=== PATIENT | male | born 1980 | race Hispanic/Latino ===

== ENCOUNTER 2019-09-18 11:28 | Emergency (ER) | payer SELFPAY ==
[2019-09-18 12:19] LABS: Urine Blood NEGATIVE (NEG); Urine Glucose NEGATIVE (NEG); Urine Protein NEGATIVE (NEG); Urine Specific Gravity 1.025 (1.005-1.030)
[2019-09-18 12:23] LABS: Urine Bacteria NONE SEEN /HPF (NONE SEEN); Urine RBC <5 /HPF (NONE SEEN)
[2019-09-18 12:24] LABS: Urine Culture Reflex Order NOT NEEDED
--- NOTE | 2019-09-18 12:41 | ER ---
Nurse's Notes [facility] Name: Mark Morton Jr Age: 39 yrs Sex: Male : 1980 Arrival Date: 09/18/2019 Time: 11:36 Bed 20 Private MD: Diagnosis: Encounter for screening, unspecified Presentation: 09/17 11:39 Chief complaint: Patient states: i went to the ER its been a while it was in [place], tw2 they told me i had an enlarged prostrate, and they told me i had fecal leakage and it is embarrassing, but they didn't explain much and he really didn't tell me much so i have been here for like a week and i told my dad to bring me here, i dont have a primary care dr either here. Coronavirus screen: Patient reports a cough. Patient denies shortness of breath or difficulty breathing. Patient denies measured and/or subjective temperature greater than 100.4F prior to today's visit. Patient denies travel on a cruise ship or to a country the [facility] currently lists as an affected area. Patient denies contact with known and/or suspected case of COVID-19. Ebola Screen: Patient denies travel to an Ebola-affected area in the 21 days before illness onset. Initial Sepsis Screen: Does the patient meet any 2 criteria? No. Patient's initial sepsis screen is negative. Does the patient have a suspected source of infection? No. Patient's initial sepsis screen is negative. Risk Assessment: Do you want to hurt yourself or someone else? Patient reports no desire to harm self or others. Onset of symptoms was September 18, 2019. 11:39 Method Of Arrival: Ambulatory tw2 11:39 Acuity: ALINA 3 tw2 Triage Assessment: 11:42 General: Appears in no apparent distress. slender, Behavior is calm, cooperative, tw2 appropriate for age. Pain: Complains of pain in right lower quadrant. GI: Reports diarrhea, "but it was 2 days ago". Historical: - Allergies: 11:42 No Known Allergies; tw2 - Home Meds: 11:42 None [Active]; tw2 - PMHx: 11:42 None; tw2 - PSHx: 11:42 None; tw2 - Immunization history:: Adult Immunizations. - Social history:: Smoking status: Patient reports the use of cigarette tobacco products, smokes one-half pack cigarettes per day. Screenin:04 Abuse screen: Denies threats or abuse. Nutritional screening: No deficits noted. tw2 Tuberculosis screening: No symptoms or risk factors identified. Fall Risk None identified. Assessment: 12:00 General: Appears in no apparent distress. Behavior is calm, cooperative, appropriate ah for age. Pain: Denies pain. Neuro: Level of Consciousness is awake, alert, obeys commands, Oriented to person, place, time, situation, Appropriate for age. Cardiovascular: Capillary refill < 3 seconds Patient's skin is warm and dry. Respiratory: Airway is patent Respiratory effort is even, unlabored, Respiratory pattern is regular, symmetrical. GI: Reports since stool leakage Patient currently denies bloody stool, constipation, nausea, pain. : Denies burning with urination, inability to void. Derm: Skin is intact, is healthy with good turgor, Skin is dry. 21:22 Reassessment: Pt given information regarding the [facility] based clinic. Discharge instructions given. Pt voiced understanding. Vital Signs: 11:39 BP 126 / 83; Pulse 77; Resp 17; Temp 97.8(TE); Pulse Ox 98% on R/A; Weight 61.23 kg tw2 (R); Height 5 ft. 5 in. (165.10 cm) (R); Pain 6/10; 11:39 Body Mass Index 22.46 (61.23 kg, 165.10 cm) tw2 ED Course: 11:36 Patient arrived in ED. fj1 11:36 [facility] cp 11:36 Tomas Heard MD is Attending Physician. cp 11:41 Triage completed. tw2 11:41 Arm band placed on. tw2 11:43 Bed in low position. Call light in reach. tw2 12:54 Aurelia Owen, RN is Primary Nurse. 13:00 No provider procedures requiring assistance completed. Patient did not have IV access during this emergency room visit. Administered Medications: No medications were administered Outcome: 12:40 Discharge ordered by . cp 13:00 Discharged to home ambulatory. 13:00 Condition: good 13:00 Discharge instructions given to patient, Instructed on discharge instructions, follow up and referral plans. Demonstrated understanding of instructions, follow-up care. 13:09 Patient left the ED. ll1 Signatures: Tomas Patel PA PA cp Wise, Tara, RN RN tw2 Ej Reyna fj1 Aurelia Owen, RN RN Brendan Muniz RN RN ll1
--- NOTE | 2019-09-18 12:41 | EDPHYS ---
Physician Documentation [facility] Name: Mark Morton Jr Age: 39 yrs Sex: Male : 1980 Arrival Date: 09/18/2019 Time: 11:36 Bed 20 Private MD: ED Physician Tomas Heard HPI: 09/17 11:55 This 39 yrs old Male presents to ER via Ambulatory with complaints of Urinary cp Problem. 11:55 The patient presents with enlarged prostate. cp 11:55 Onset: The symptoms/episode began/occurred at an unknown time. Associated signs and cp symptoms: Pertinent positives: difficulty urinating, Pertinent negatives: abdominal pain, constipation, diarrhea, dysuria, fever. Severity of symptoms: in the emergency department the symptoms are unchanged, despite home interventions. Historical: - Allergies: 11:42 No Known Allergies; tw2 - Home Meds: 11:42 None [Active]; tw2 - PMHx: 11:42 None; tw2 - PSHx: 11:42 None; tw2 - Immunization history:: Adult Immunizations. - Social history:: Smoking status: Patient reports the use of cigarette tobacco products, smokes one-half pack cigarettes per day. ROS: 12:00 Constitutional: Negative for body aches, chills, fever, poor PO intake. cp 12:00 Cardiovascular: Negative for chest pain, palpitations. cp 12:00 Respiratory: Negative for cough, shortness of breath, wheezing. 12:00 Abdomen/GI: Negative for abdominal pain, diarrhea, constipation, bowel incontinence. 12:00 Back: Negative for pain at rest, pain with movement. 12:00 : Positive for difficulty urinating, Negative for urinary frequency, burning with urination, testicular pain 12:00 Neuro: Negative for altered mental status, headache, weakness. 12:00 All other systems are negative. Exam: 12:05 Constitutional: The patient appears in no acute distress, alert, awake, cp non-diaphoretic, non-toxic, well developed, well nourished. 12:05 Head/Face: Normocephalic, atraumatic. cp 12:05 Chest/axilla: Inspection: normal. 12:05 Cardiovascular: Rate: normal. 12:05 Respiratory: the patient does not display signs of respiratory distress, Respirations: normal, no use of accessory muscles, no retractions, labored breathing, is not present. 12:05 Abdomen/GI: Exam negative for discomfort, distension, guarding, Inspection: abdomen appears normal. Vital Signs: 11:39 BP 126 / 83; Pulse 77; Resp 17; Temp 97.8(TE); Pulse Ox 98% on R/A; Weight 61.23 kg tw2 (R); Height 5 ft. 5 in. (165.10 cm) (R); Pain 6/10; 11:39 Body Mass Index 22.46 (61.23 kg, 165.10 cm) tw2 MDM: 11:44 Patient medically screened. [facility] 12:00 Differential diagnosis: UTI, urinary retention, prostatitis, urethritis. cp 12:40 Data reviewed: vital signs, nurses notes, lab test result(s), urinalysis, and as a cp result, I will discharge patient. 09/18 10:05 Counseling: I had a detailed discussion with the patient and/or guardian regarding: the cp historical points, exam findings, and any diagnostic results supporting the discharge/admit diagnosis, lab results, the need for outpatient follow up, a family practitioner, a urologist, to return to the emergency department if symptoms worsen or persist or if there are any questions or concerns that arise at home. 09/17 11:51 Order name: Urine Microscopic Only; Complete Time: 12:28 09/17 12:10 Order name: Urine Dipstick--Ancillary (enter results); Complete Time: 12:24 09/17 11:51 Order name: Urine Dipstick-Ancillary (obtain specimen); Complete Time: 12:09 Administered Medications: No medications were administered Disposition: 09/17 13:15 Chart complete. 09/18 08:35 Co-signature as Attending Physician, Tomas Heard MD I agree with the assessment and [facility] plan of care. Disposition: 09/18/19 12:40 Discharged to Home. Impression: Encounter for screening, unspecified. - Condition is Stable. - Medication Reconciliation Form, Thank You Letter, Antibiotic Education, Prescription Opioid Use form. - Follow up: Private Physician; When: 2 - 3 days; Reason: Recheck today's complaints. - Problem is an ongoing problem. - Symptoms are unchanged. Signatures: Dispatcher [employer] Tomas Borja MD MD cha Page, Corey, PA PA Kilo Salomona, RN RN tw2 Brendan Muniz RN RN ll1 Corrections: (The following items were deleted from the chart) 09/17 13:09 12:40 09/18/2019 12:40 Discharged to Home. Impression: Encounter for screening, ll1 unspecified. Condition is Stable. Forms are Medication Reconciliation Form, Thank You Letter, Antibiotic Education, Prescription Opioid Use. Follow up: Private Physician; When: 2 - 3 days; Reason: Recheck today's complaints. Problem is an ongoing problem. Symptoms are unchanged. cp
--- OUTSIDE RECORDS SUMMARY | 2019-09-18 12:49 | XMS REPORT | Continuity of Care Document ---
:1980 Author Organization [facility] t Address [address] [place] [address] Care Team Providers Name Role Phone Unavailable Unavailable Unavailable Payers Payer Name Policy Type Policy Number Effective Date Expiration Date S ource Problems This patient has no known problems. Allergies, Adverse Reactions, Alerts Allergy Allergy Status Severity Reaction(s) Onset Inactive Treating Comm ents Source Name Type Date Date Clinician No Known DA Active U 2019-0 [facility]- [facility] s 00:00: [address] No Known DA Active U 0 [facility] 8 [facility] s 00:00: [address] [facility] No Known DA Active U 2018-0 [facility] 5-25 [facility]: e [facility] Medications This patient has no known medications. Procedures This patient has no known procedures. Results Test Description Test Time Test Comments Results Result Comments Source CBC W/AUTO DIFF 2019-08-18 12:22:00 Test Item Value Reference Range Interpretation Comme nts WHITE BLOOD CELL (test code = WBC) 6.26 x10 3/uL 4.80-10.80 N RED BLOOD CELL (test code = RBC) 5.07 x10 6/uL 4.7-6.1 N HEMOGLOBIN (test code = HGB) 17.4 G/DL 14.0-17.0 H HEMATOCRIT (test code = HCT) 49.6 % 42-52 N MEAN CELL VOLUME (test code = MCV) 97.8 FL 80-94 H MEAN CELL HGB (test code = MCH) 34.3 PG 27-31 H MEAN CELL HGB CONCENTRATION (test code = MCHC) 35.1 G/DL 33-37 N RED CELL DISTRIBUTION WIDTH (test code = RDW) 13.7 % 11.5-14. 5 N PLATELET COUNT (test code = PLT) 144 x10 3/uL 150-450 L MEAN PLATELET VOLUME (test code = MPV) 9.9 FL 7.4-10.4 N NEUTROPHIL % (test code = NT%) 64.5 % 42-86 N LYMPHOCYTE % (test code = LY%) 24.4 % 24-44 N MONOCYTE % (test code = MO%) 9.9 % 0.0-4.0 H EOSINOPHIL % (test code = EO%) 1.0 % 0.0-2.7 N BASOPHIL % (test code = BA%) 0.2 % 0.0-0.5 N NEUTROPHIL # (test code = NT#) 4.04 x10 3/uL 1.8-7.7 N LYMPHOCYTE # (test code = LY#) 1.53 x10 3/uL 1.0-4.8 N MONOCYTE # (test code = MO#) 0.62 x10 3/uL 0.0-0.8 N EOSINOPHIL # (test code = EO#) 0.06 x10 3/uL 0.0-0.5 N BASOPHIL # (test code = BA#) 0.01 x10 3/uL 0.0-0.2 N BASIC METABOLIC [id number] 11:20:00 Test Item Value Reference Range Interpretation Comments SODIUM (test code = 142 mmol/L 136-145 N NA) POTASSIUM (test code 3.6 mmol/L 3.5-5.1 N = K) CHLORIDE (test code = 106.0 mmol/L 98-107 N CL) CARBON DIOXIDE (test 30.0 mmol/L 21-32 N code = CO2) ANION GAP (test code 9.6 10-20 L = GAP) GLUCOSE (test code = 71 mg/dL 74-106 L GLU) BLOOD UREA NITROGEN 12 mg/dL 7-18 N (test code = BUN) GLOMERULAR FILTRATION > 60 mL/min >=60 Estima tuan GFR by RATE (test code = using Rebeca fied MDRD GFR) formula.Chronic kidney disease is defined as eith er kidney damageor GFR <60 mL/min/1.73 m2 for >3 months. CREATININE (test code 0.90 mg/dL 0.7-1.3 N = CREAT) BUN/CREATININE RATIO 13.9 10-20 N (test code = BUN/CREA) CALCIUM (test code = 8.9 mg/dL 8.5-10.1 N CA) HEPATIC FUNCTION [id number] 11:20:00 Test Item Value Reference Range Interpretation Comments TOTAL PROTEIN (test 7.9 gram/dL 6.4-8.2 N code = PROT) ALBUMIN (test code = 3.4 g/dL 3.4-5.0 N ALB) GLOBULIN (test code = 4.5 gram/dL 2.7-4.2 H GLOB) ALBUMIN/GLOBULIN RATIO 0.8 0.75-1.50 N (test code = A/G) BILIRUBIN TOTAL (test 0.80 mg/dL 0.0-1.0 N code = BILT) BILIRUBIN DIRECT (test 0.31 mg/dL 0.0-0.20 H code = BILD) SGOT/AST (test code = 40 IUnit/L 15-37 H AST) SGPT/ALT (test code = 46 IUnit/L 12-78 N ALT) ALKALINE PHOSPHATASE 117 IUnit/L 45-117 N Note change in TOTAL (test code = reference range due ALKP) to change in reagent. [id number] 11:20:00 Test Item Value Reference Range Interpretation Comments LIPASE (test code = LIP) 124 U/L 73.0-393.0 N BASIC METABOLIC [id number] 11:12:00 Test Item Value Reference Range Interpretation Comments SODIUM (test code = NA) 142 mmol/L 136-145 N POTASSIUM (test code = K) 3.6 mmol/L 3.5-5.1 N CHLORIDE (test code = CL) 106.0 mmol/L 98-107 N CARBON DIOXIDE (test code = CO2) mmol/L 21-32 ANION GAP (test code = GAP) 10-20 GLUCOSE (test code = GLU) mg/dL 74-106 BLOOD UREA NITROGEN (test code = mg/dL 7-18 BUN) GLOMERULAR FILTRATION RATE (test mL/min >=60 code = GFR) CREATININE (test code = CREAT) mg/dL 0.7-1.3 BUN/CREATININE RATIO (test code 10-20 = BUN/CREA) CALCIUM (test code = CA) mg/dL 8.5-10.1 HEPATIC FUNCTION [id number] 11:12:00 Test Item Value Reference Range Interpretation Comments TOTAL PROTEIN (test code = PROT) gram/dL 6.4-8.2 ALBUMIN (test code = ALB) g/dL 3.4-5.0 GLOBULIN (test code = GLOB) gram/dL 2.7-4.2 ALBUMIN/GLOBULIN RATIO (test code = 0.75-1.50 A/G) BILIRUBIN TOTAL (test code = BILT) mg/dL 0.0-1.0 BILIRUBIN DIRECT (test code = BILD) mg/dL 0.0-0.20 SGOT/AST (test code = AST) IUnit/L 15-37 SGPT/ALT (test code = ALT) IUnit/L 12-78 ALKALINE PHOSPHATASE TOTAL (test IUnit/L 45-117 code = ALKP) [id number] 11:12:00 Test Item Value Reference Range Interpretation Comments LIPASE (test code = LIP) U/L 73.0-393.0 CBC W/O [id number] 11:09:00 Test Item Value Reference Range Interpretation Comments WHITE BLOOD CELL (test code = 5.2 K/mm3 4.5-12.5 N WBC) RED BLOOD CELL (test code = 4.74 mill/mm3 4.0-5.8 N RBC) HEMOGLOBIN (test code = HGB) 15.8 gram/dL 13.0-17.5 N HEMATOCRIT (test code = HCT) 46.5 % 42.0-52.0 N MEAN CELL VOLUME (test code = 98.1 fL 80-98 H MCV) MEAN CELL HGB (test code = MCH) 33.3 picogram 27.0-33.0 H MEAN CELL HGB CONCETRATION 34.0 gram/dL 33.0-36.0 N (test code = MCHC) RED CELL DISTRIBUTION WIDTH 13.2 % 11.6-16.2 N (test code = RDW) PLATELET COUNT (test code = 139 K/mm3 150-450 L PLT) MEAN PLATELET VOLUME (test code 10.3 fL 6.7-11.0 N = MPV) CBC W/O [id number] 11:02:00 Test Item Value Reference Range Interpretation Comments WHITE BLOOD CELL (test code = K/mm3 4.5-12.5 WBC) RED BLOOD CELL (test code = RBC) mill/mm3 4.0-5.8 HEMOGLOBIN (test code = HGB) 15.8 gram/dL 13.0-17.5 N HEMATOCRIT (test code = HCT) 46.5 % 42.0-52.0 N MEAN CELL VOLUME (test code = fL 80-98 MCV) MEAN CELL HGB (test code = MCH) picogram 27.0-33.0 MEAN CELL HGB CONCETRATION (test gram/dL 33.0-36.0 code = MCHC) RED CELL DISTRIBUTION WIDTH % 11.6-16.2 (test code = RDW) PLATELET COUNT (test code = PLT) K/mm3 150-450 MEAN PLATELET VOLUME (test code fL 6.7-11.0 = MPV) - CT ABD PELVIS W/O [id number] 10:10:00 Name: LONNIE AGUILAR [facility] : 1980 Age/S: 38 / M [address] [facility] Unit #: [id number] Loc: [place] [address] Phys: Estelita Bernard [employer] Acct: [id number] Dis Date: Status: REG ER PHONE #: [phone] Exam Date: 01/01/2019 0943 FAX #: [phone] Reason: Right fl ank pain EXAMS: CPTCODE: [id number] CT ABD PELVIS W/O CONT 07876 HISTORY: Right flank pain. COMPARISON: None available. CT abdomen and pelvis: Stone protocol. Automated exposure control. Location: [facility]. CT ABDOMEN: The lung bases are clear. The noncontrast liver is unremarkable. No discrete parenchymal mass. The spleen is prominent measuring 16.4 cm in AP direction. The stomach is distended well with food and it is within normal limits. Noncontrast pancreas and adrenals are normal. Kidneys are free from hydroureteronephrosis. No calyceal stones. No pathologic adenopathy. Unremarkable unopacified abdominal and pelvic vasculature. No bowel obstruction or colitis or diverticulitis or enteritis. Constipation. CT PELVIS: Appendix is not visible with certainty however no inflammatory changes are noted. No bowel obstruction. Decompressed urinary bladder is nondiagnostic. Prostate with coarse calcifications measuring 3.4 cm. No free fluid or free air. No pelvic pathologic adenopathy. The subcutaneous tissues and the musculature are normal in appearance. No lytic or blastic lesions are noted within the bony skeleton. Bone islands. IMPRESSION: No hydroureteronephrosis or calyceal stones. Unremarkable decompressed urinary bladder is limited in evaluation. No free fluid or free air. PAGE 1 Signed Report (CONTINUED) Name: LONNIE AGUILAR [facility] : 1980 Age/S: 38 / M [address] [facility] Unit #: [id number] Loc: [place] [address] Phys: Estelita Bernard NP Acct: [id number] Dis Date: Status: REG ER PHONE #: [phone] Exam Date: 01/01/2019942 FAX #: [phone] Reason: Right flank pain EXAMS: CPT CODE: [id number] CT ABD PELVIS W/O CONT 34023 <Continued> Appendix is not visible however no bowel obstruction or colitis or diverticulitis or enteritis.Study is limited due to lack of intra-abdominal and subcutaneous fat and due to lack of contrast. at 1010 Reported and signed by: Maverick Eckert M.D. CC: Estelita Bernard NP Technologist:Aggie Min,RT(R),CT CTDI: DLP: Trnscb Date/Time: 01/01/2019 (1010) [email or web address] Orig Print D/T: S: 01/01/2019 (1013) PAGE 2 Signed ReportURINALYSIS [id number] 10:06:00 Test Item Value Reference Range Interpretation Comments UA COLOR (test code = YELLOW YELLOW COLU) UA APPEARANCE (test code CLEAR CLEAR = APPU) UA GLUCOSE DIPSTICK (test NEGATIVE mg/dL NEGATIVE code = DGLUU) UA BILIRUBIN DIPSTICK NEGATIVE mg/dL NEGATIVE (test code = BILU) UA KETONE DIPSTICK (test NEGATIVE mg/dL NEGATIVE code = KETU) UA SPECIFIC GRAVITY (test 1.028 1.001-1.035 code = SGU) UA BLOOD DIPSTICK (test Negative mg/dL NEGATIVE code = TREMAINE) UA PH DIPSTICK (test code 5.5 5.0-8.0 = SCOTT) UA PROTEIN DIPSTICK (test 20 (Trace) mg/dL NEGATIVE A code = PROU) UA UROBILINIOGEN DIPSTICK 6.0 (2+) mg/dL NEGATIVE A (test code = URO) UA NITRITE DIPSTICK (test NEGATIVE NEGATIVE code = COOPER) UA LEUKOCYTE ESTERASE W 75 Nica/uL (1+) NEGATIVE A REFLEX (test code = Nica/uL LEUUR) UA WBC (test code = WBCU) 21-50 per HPF 0-5 A UA RBC (test code = RBCU) 0-2 #/HPF 0-5 UA EPITHELIAL CELLS (test FEW per HPF FEW code = EPIU) UA BACTERIA (test code = FEW #/HPF NONE A BACU) UA MUCUS (test code = FEW #/LPF FEW MUCU) Urine Source? Clean CatchURINALYSIS [id number] 16:36:00 Test Item Value Reference Range Interpretation Comments UA COLOR (test code = COLU) Dark-Yellow YELLOW UA APPEARANCE (test code = CLEAR CLEAR APPU) UA GLUCOSE DIPSTICK (test NEGATIVE mg/dL NEGATIVE code = DGLUU) UA BILIRUBIN DIPSTICK (test 0.5 (1+) mg/dL NEGATIVE A code = BILU) UA KETONE DIPSTICK (test 10 (1+) mg/dL NEGATIVE A code = KETU) UA SPECIFIC GRAVITY (test 1.029 1.001-1.035 code = SGU) UA BLOOD DIPSTICK (test Negative mg/dL NEGATIVE code = TREMAINE) UA PH DIPSTICK (test code = 5.5 5.0-8.0 SCOTT) UA PROTEIN DIPSTICK (test 20 (Trace) mg/dL NEGATIVE A code = PROU) UA UROBILINIOGEN DIPSTICK >12.0 (4+) mg/dL NEGATIVE A (test code = URO) UA NITRITE DIPSTICK (test NEGATIVE NEGATIVE code = COOPER) UA LEUKOCYTE ESTERASE W NEGATIVE Nica/uL NEGATIVE REFLEX (test code = LEUUR) UA WBC (test code = WBCU) 0-5 per HPF 0-5 UA RBC (test code = RBCU) 0-2 #/HPF 0-5 UA EPITHELIAL CELLS (test None seen per HPF FEW code = EPIU) UA BACTERIA (test code = NONE SEEN #/HPF NONE BACU) UA MUCUS (test code = MUCU) FEW #/LPF FEW Urine Source? Clean CatchBASIC METABOLIC [id number] 16:29:00 Test Item Value Reference Range Interpretation Comments SODIUM (test code = 137 mmol/L 136-145 N NA) POTASSIUM (test code 3.4 mmol/L 3.5-5.1 L = K) CHLORIDE (test code = 103.0 mmol/L 98-107 N CL) CARBON DIOXIDE (test 26.0 mmol/L 21-32 N code = CO2) ANION GAP (test code 11.4 10-20 N = GAP) GLUCOSE (test code = 130 mg/dL 74-106 H GLU) BLOOD UREA NITROGEN 14 mg/dL 7-18 N (test code = BUN) GLOMERULAR FILTRATION 57 mL/min >=60 Estima tuan GFR by RATE (test code = using Rebeca fied MDRD GFR) formula.Chronic kidney disease is defined as [facility] er kidney damageor GFR <60 mL/min/1.73 m2 for >3 months. CREATININE (test code 1.40 mg/dL 0.7-1.3 H = CREAT) BUN/CREATININE RATIO 10.0 10-20 N (test code = BUN/CREA) CALCIUM (test code = 8.2 mg/dL 8.5-10.1 L CA) HEPATIC FUNCTION [id number] 16:29:00 Test Item Value Reference Range Interpretation Comments TOTAL PROTEIN (test 8.3 gram/dL 6.4-8.2 H code = PROT) ALBUMIN (test code = 3.9 g/dL 3.4-5.0 N ALB) GLOBULIN (test code = 4.4 gram/dL 2.7-4.2 H GLOB) ALBUMIN/GLOBULIN RATIO 0.9 0.75-1.50 N (test code = A/G) BILIRUBIN TOTAL (test 1.30 mg/dL 0.0-1.0 H code = BILT) BILIRUBIN DIRECT (test 0.43 mg/dL 0.0-0.20 H code = BILD) SGOT/AST (test code = 50 IUnit/L 15-37 H AST) SGPT/ALT (test code = 56 IUnit/L 12-78 N ALT) ALKALINE PHOSPHATASE 130 IUnit/L 45-117 H Note change in TOTAL (test code = reference range due ALKP) to change in reagent. [id number] 16:29:00 Test Item Value Reference Range Interpretation Comments LIPASE (test code = LIP) 121 U/L 73.0-393.0 N BASIC METABOLIC [id number] 16:16:00 Test Item Value Reference Range Interpretation Comments SODIUM (test code = NA) 137 mmol/L 136-145 N POTASSIUM (test code = K) 3.4 mmol/L 3.5-5.1 L CHLORIDE (test code = CL) 103.0 mmol/L 98-107 N CARBON DIOXIDE (test code = CO2) mmol/L 21-32 ANION GAP (test code = GAP) 10-20 GLUCOSE (test code = GLU) mg/dL 74-106 BLOOD UREA NITROGEN (test code = mg/dL 7-18 BUN) GLOMERULAR FILTRATION RATE (test mL/min >=60 code = GFR) CREATININE (test code = CREAT) mg/dL 0.7-1.3 BUN/CREATININE RATIO (test code 10-20 = BUN/CREA) CALCIUM (test code = CA) mg/dL 8.5-10.1 HEPATIC FUNCTION [id number] 16:16:00 Test Item Value Reference Range Interpretation Comments TOTAL PROTEIN (test code = PROT) gram/dL 6.4-8.2 ALBUMIN (test code = ALB) g/dL 3.4-5.0 GLOBULIN (test code = GLOB) gram/dL 2.7-4.2 ALBUMIN/GLOBULIN RATIO (test code = 0.75-1.50 A/G) BILIRUBIN TOTAL (test code = BILT) mg/dL 0.0-1.0 BILIRUBIN DIRECT (test code = BILD) mg/dL 0.0-0.20 SGOT/AST (test code = AST) IUnit/L 15-37 SGPT/ALT (test code = ALT) IUnit/L 12-78 ALKALINE PHOSPHATASE TOTAL (test IUnit/L 45-117 code = ALKP) [id number] 16:16:00 Test Item Value Reference Range Interpretation Comments LIPASE (test code = LIP) U/L 73.0-393.0 CBC W/O [id number] 15:53:00 Test Item Value Reference Range Interpretation Comments WHITE BLOOD CELL (test code = 6.5 K/mm3 4.5-12.5 N WBC) RED BLOOD CELL (test code = 5.17 mill/mm3 4.0-5.8 N RBC) HEMOGLOBIN (test code = HGB) 17.1 gram/dL 13.0-17.5 N HEMATOCRIT (test code = HCT) 50.0 % 42.0-52.0 N MEAN CELL VOLUME (test code = 96.7 fL 80-98 N MCV) MEAN CELL HGB (test code = MCH) 33.1 picogram 27.0-33.0 H MEAN CELL HGB CONCETRATION 34.2 gram/dL 33.0-36.0 N (test code = MCHC) RED CELL DISTRIBUTION WIDTH 12.8 % 11.6-16.2 N (test code = RDW) PLATELET COUNT (test code = 154 K/mm3 150-450 N PLT) MEAN PLATELET VOLUME (test code 10.2 fL 6.7-11.0 N = MPV)
[2019-09-18 13:15] VITALS: BP 126/83; TEMP 97.8; O2SAT 98
== END 2019-09-18 13:09 | disposition home or self-care (01) ==
LOC: ER 11:28
DX: Z00.00 Encounter for general adult medical examination without abnormal findings (principal); F17.210 Nicotine dependence, cigarettes, uncomplicated
CPT/HCPCS: 81003; 81015; 99281

== ENCOUNTER 2023-12-05 02:28 | Emergency (ER) | payer OTHER, SELFPAY ==
--- OUTSIDE RECORDS SUMMARY | 2023-12-05 02:31 | XMS REPORT | Continuity of Care Document ---
Author Name Unknown Address [address] [place] [address] [facility] thconnect Address [address] [place] [address] Care Team Providers Care Information Systems Administrator Name Role Phone Choco Lorenz Attending Clinician Unavailable Physician, No Primary or Family Admitting Clinic [facility] U navailable Payers Payer Name Policy Type Policy Number Effective Date Expirati on Date Source Allergies, Adverse Reactions, Alerts Allergy Name Allergy Type Status Severity Reaction(s) Onset Date Inactive Date Treating Clinician Comments Source No Known Allergie s DA Active U 2-14 00:[facility]: [facility] No Known Allergie s DA Active U 08-17 00:00: [address] [facility] No Known Allergie s DA Active U 08-17 00:00: [facility] No Known Allergie s DA Active U 10-17 00:00: [address] [facility] No Known Allergie s DA Active U 10-17 00:00: [address] [facility] No Known Allergie s DA Active U 07-15 00:00: 00 [facility] Encounters Start Date/Time End Date/Time Encounter Type Admission Type Attending [facility] Care Facility Care Department Encounter ID Source 2019-08-18 11:35:00 Inpatient [facility] ER [id number] 95 [facility] 2021-04-06 08:41:00 2021-04-06 09:33:00 Emergency EM Choco Lorenz [facility] FERS [id number] [facility] Results Test Description Test Time Test Comments Results Result Co mments Source COVID 19 INHOUSE [id number] 09:22:00* Test Item Value Reference Range Interpretation Comme nts COVID 19 INHOUSE AG (test co de = [id number]) NEGATIVE NEGATIVE CBC W/AUTO [id number] 12:22:00* Test Item Value Reference Range Interpretation Comme [...] WIDTH (test code = RDW) 13.7 % 11.5-14.5 N PLATELET COUNT (test code = PLT) 144 x10 3/uL 150-450 L MEAN PLATELET VOLUME (test c ode = MPV) 9.9 FL 7.4-10.4 N NEUTROPHIL [...] 0.01 x10 3/uL 0.0-0.2 N BASIC METABOLIC [id number] 11:20:00* Test Item Value Reference Range Interpretation Comme nts SODIUM (test code = NA) 142 mmol/L 136-145 N POTASSIUM (test code = K) 3.6 mmol/L 3.5-5.1 N CHLORIDE (test code = CL) 106.0 mmol/L 98-107 N CARBON DIOXIDE (test code = CO2) 30.0 mmol/L 21-32 N ANION GAP (test code = GAP) 9.6 10-20 L GLUCOSE (test code = GLU) 71 mg/dL 74-106 L BLOOD UREA NITROGEN (test code = BUN) 12 mg/dL 7-18 N GLOMERULAR FILTRATION RATE (test code = GFR) > 60 mL/min >=60 Estimated GFR by using Modified MDRD formula.Chronic kidney disease is defined as either kidney damageor GFR <60 mL/min/1.73 m2 for >3 months. CREATININE (test code = CREAT) 0.90 mg/dL 0.7-1.3 N BUN/CREATININE RATIO (test code = BUN/CREA) 13.9 10-20 N CALCIUM (test code = CA) 8.9 mg/dL 8.5-10.1 N HEPATIC FUNCTION [id number] 11:20:00* Test Item Value Reference Range Interpretation Comme nts TOTAL PROTEIN (test code = PROT) 7.9 gram/dL 6.4-8.2 N ALBUMIN (test code = ALB) 3.4 g/dL 3.4-5.0 N GLOBULIN (test code = GLOB) 4.5 gram/dL 2.7-4.2 H ALBUMIN/GLOBULIN RATIO (test code = A/G) 0.8 0.75-1.50 N BILIRUBIN TOTAL (test code = BILT) 0.80 mg/dL 0.0-1.0 N BILIRUBIN DIRECT (test code = BILD) 0.31 mg/dL 0.0-0.20 H SGOT/AST (test code = AST) 40 IUnit/L 15-37 H SGPT/ALT (test code = ALT) 46 IUnit/L 12-78 N ALKALINE PHOSPHATASE TOTAL (test code = ALKP) 117 IUnit/L 45-117 N Note change in reference range due to change in reagent. [id number] 11:20:00* Test Item Value Reference Range Interpretation Comme nts LIPASE (test code = LIP) 124 U/L 73.0-393.0 N BASIC METABOLIC [id number] 11:12:00* Test Item Value Reference Range Interpretation Comme nts SODIUM (test code = NA) 142 mmol/L 136-145 N POTASSIUM (test code = K) 3.6 mmol/L 3.5-5.1 N CHLORIDE (test code = CL) 106.0 mmol/L 98-107 N CARBON DIOXIDE (test code = CO2) mmol/L 21-32 ANION GAP (test code = GAP) 10-20 GLUCOSE (test code = GLU) mg/dL 74-106 BLOOD UREA NITROGEN (test co de = BUN) mg/dL 7-18 GLOMERULAR FILTRATION RATE ( test code = GFR) mL/min >=60 CREATININE (test code = CREAT) mg/dL 0.7-1.3 BUN/CREATININE RATIO (test c ode = BUN/CREA) 10-20 CALCIUM (test code = CA) mg/dL 8.5-10.1 HEPATIC FUNCTION [id number] 11:12:00* Test Item Value Reference Range Interpretation Comme nts TOTAL PROTEIN (test code = PROT) gram/dL 6.4-8.2 ALBUMIN (test code = ALB) g/dL 3.4-5.0 GLOBULIN (test code = GLOB) gram/dL 2.7-4.2 ALBUMIN/GLOBULIN RATIO (test code = A/G) 0.75-1.50 BILIRUBIN TOTAL (test code = BILT) mg/dL 0.0-1.0 BILIRUBIN DIRECT (test code = BILD) mg/dL 0.0-0.20 SGOT/AST (test code = AST) IUnit/L 15-37 SGPT/ALT (test code = ALT) IUnit/L 12-78 ALKALINE PHOSPHATASE TOTAL ( test code = ALKP) IUnit/L 45-117 [id number] 11:12:00* Test Item Value Reference Range Interpretation Comme nts LIPASE (test code = LIP) U/L 73.0-393.0 CBC W/O [id number] 11:09:00* Test Item Value Reference Range Interpretation Comme nts WHITE BLOOD CELL (test code = WBC) 5.2 K/mm3 4.5-12.5 N RED BLOOD CELL (test code = RBC) 4.74 mill/mm3 4.0-5.8 N HEMOGLOBIN (test code = HGB) 15.8 gram/dL 13.0-17.5 N HEMATOCRIT (test code = HCT) 46.5 % 42.0-52.0 N MEAN CELL VOLUME (test code = MCV) 98.1 fL 80-98 H MEAN CELL HGB (test code = MCH) 33.3 picogram 27.0-33.0 H MEAN CELL HGB CONCETRATION (test code = MCHC) 34.0 gram/dL 33.0-36.0 N RED CELL DISTRIBUTION WIDTH (test code = RDW) 13.2 % 11.6-16.2 N PLATELET COUNT (test code = PLT) 139 K/mm3 150-450 L MEAN PLATELET VOLUME (test c ode = MPV) 10.3 fL 6.7-11.0 N CBC W/O [id number] 11:02:00* Test Item Value Reference Range Interpretation Comme nts WHITE BLOOD CELL (test code = WBC) K/mm3 4.5-12.5 RED BLOOD CELL (test code = RBC) mill/mm3 4.0-5.8 HEMOGLOBIN (test code = HGB) 15.8 gram/dL 13.0-17.5 N HEMATOCRIT (test code = HCT) 46.5 % 42.0-52.0 N MEAN CELL VOLUME (test code = MCV) fL 80-98 MEAN CELL HGB (test code = MCH) picogram 27.0-33.0 MEAN CELL HGB CONCETRATION ( test code = MCHC) gram/dL 33.0-36.0 RED CELL DISTRIBUTION WIDTH (test code = RDW) % 11.6-16.2 PLATELET COUNT (test code = PLT) K/mm3 150-450 MEAN PLATELET VOLUME (test c ode = MPV) fL 6.7-11.0 - CT ABD PELVIS W/O [id number] 10:10:00[facility] [place] : 1980 Age/S: 38 / M [address] Unit #: [id number] Loc: [place] [id number] Phys: Marco AntonioEstelita FILTROSE CRUSHER Acct: [id number] Dis Date: Status: REG ER PHONE #: [phone] Exam Date: 01/01/2019 0943 FAX #: [phone] Reason: Right flank pain EXAMS: CPT CODE: [id number] CT ABD PELVIS W/O CONT 15057 HISTORY: Right flank pain. COMPARISON: None available. CT abdomen and pelvis: Stone protocol. Automated exposure control. Location: [facility]. CT ABDOMEN: The lung bases are clear. [...] 1 Signed Report (CONTINUED) Name: LONNIE AGUILAR [facility] ([place], [place]) : 1980 Age/S: 38 / M [address] Unit #: [id number] Loc: [place] [address] Phys: BernardEstelita FILTROSE CRUSHER Acct: [id number] Dis Date: Status: REG ER PHONE #: [phone] Exam Date: 01/01/2019 0943 FAX #: [phone] Reason: Right flank pain EXAMS: CPTCODE: [id number] CT ABD PELVIS W/O CONT 79252 (Continued) Appendix is not visible however no bowel obstruction or colitis or diverticulitis or enteritis. Study is limited due to lack of intra-abdominal and subcutaneous fat and due to lack of contrast. Electronically Signed by Debra Eckert on01/01/2019 at 1010 Reported and signed by: Maverick Eckert M.D. CC: Estelita Bernard NP Technologist:Aggie Min,RT(R),CT CTDI: DLP: Trnscb Date/Time: 01/01/2019 (1010) [email or web address] Orig Print D/T: S: 01/01/2019 (1013) PAGE 2 Signed ReportURINALYSIS [id number] 10:06:00* Test Item Value Reference Range Interpretation Comme nts UA COLOR (test code = COLU) YELLOW YELLOW UA APPEARANCE (test code = APPU) CLEAR CLEAR UA GLUCOSE DIPSTICK (test code = DGLUU) NEGATIVE mg/dL NEGATIVE UA BILIRUBIN DIPSTICK (test code = BILU) NEGATIVE mg/dL NEGATIVE UA KETONE DIPSTICK (test code = KETU) NEGATIVE mg/dL NEGATIVE UA SPECIFIC GRAVITY (test code = SGU) 1.028 1.001-1.035 UA BLOOD DIPSTICK (test code = TREMAINE) Negative mg/dL NEGATIVE UA PH DIPSTICK (test code = SCOTT) 5.5 5.0-8.0 UA PROTEIN DIPSTICK (test code = PROU) 20 (Trace) mg/dL NEGATIVE A UA UROBILINIOGEN DIPSTICK (test code = URO) 6.0 (2+) mg/dL NEGATIVE A UA NITRITE DIPSTICK (test code = COOPER) NEGATIVE NEGATIVE UA LEUKOCYTE ESTERASE W REFLEX (test code = LEUUR) 75 Nica/uL (1+) Nica/uL NEGATIVE A UA WBC (test code = WBCU) 21-50 per HPF 0-5 A UA RBC (test code = RBCU) 0-2 #/HPF 0-5 UA EPITHELIAL CELLS (test code = EPIU) FEW per HPF FEW UA BACTERIA (test code = BACU) FEW #/HPF NONE A UA MUCUS (test code = MUCU) FEW #/LPF FEW Urine Source? Clean CatchURINALYSIS [id number] 16:36:00* Test Item Value Reference Range Interpretation Comme nts UA COLOR (test code = COLU) Dark-Yellow YELLOW UA APPEARANCE (test code = APPU) CLEAR CLEAR UA GLUCOSE DIPSTICK (test code = DGLUU) NEGATIVE mg/dL NEGATIVE UA BILIRUBIN DIPSTICK (test code = BILU) 0.5 (1+) mg/dL NEGATIVE A UA KETONE DIPSTICK (test code = KETU) 10 (1+) mg/dL NEGATIVE A UA SPECIFIC GRAVITY (test code = SGU) 1.029 1.001-1.035 UA BLOOD DIPSTICK (test code = TREMAINE) Negative mg/dL NEGATIVE UA PH DIPSTICK (test code = SCOTT) 5.5 5.0-8.0 UA PROTEIN DIPSTICK (test code = PROU) 20 (Trace) mg/dL NEGATIVE A UA UROBILINIOGEN DIPSTICK (test code = URO) >12.0 (4+) mg/dL NEGATIVE A UA NITRITE DIPSTICK (test code = COOPER) NEGATIVE NEGATIVE UA LEUKOCYTE ESTERASE W REFLEX (test code = LEUUR) NEGATIVE Nica/uL NEGATIVE UA WBC (test code = WBCU) 0-5 per HPF 0-5 UA RBC (test code = RBCU) 0-2 #/HPF 0-5 UA EPITHELIAL CELLS (test code = EPIU) None seen per HPF FEW UA BACTERIA (test code = BACU) NONE SEEN #/HPF NONE UA MUCUS (test code = MUCU) FEW #/LPF FEW Urine Source? Clean CatchBASIC METABOLIC [id number] 16:29:00* Test Item Value Reference Range Interpretation Comme nts SODIUM (test code = NA) 137 mmol/L 136-145 N POTASSIUM (test code = K) 3.4 mmol/L 3.5-5.1 L CHLORIDE (test code = CL) 103.0 mmol/L 98-107 N CARBON DIOXIDE (test code = CO2) 26.0 mmol/L 21-32 N ANION GAP (test code = GAP) 11.4 10-20 N GLUCOSE (test code = GLU) 130 mg/dL 74-106 H BLOOD UREA NITROGEN (test code = BUN) 14 mg/dL 7-18 N GLOMERULAR FILTRATION RATE (test code = GFR) 57 mL/min >=60 Estimated GFR by using Modified MDRD formula.Chronic kidney disease is defined as either kidney damageor GFR <60 mL/min/1.73 m2 for >3 months. CREATININE (test code = CREAT) 1.40 mg/dL 0.7-1.3 H BUN/CREATININE RATIO (test code = BUN/CREA) 10.0 10-20 N CALCIUM (test code = CA) 8.2 mg/dL 8.5-10.1 L HEPATIC FUNCTION [id number] 16:29:00* Test Item Value Reference Range Interpretation Comme nts TOTAL PROTEIN (test code = PROT) 8.3 gram/dL 6.4-8.2 H ALBUMIN (test code = ALB) 3.9 g/dL 3.4-5.0 N GLOBULIN (test code = GLOB) 4.4 gram/dL 2.7-4.2 H ALBUMIN/GLOBULIN RATIO (test code = A/G) 0.9 0.75-1.50 N BILIRUBIN TOTAL (test code = BILT) 1.30 mg/dL 0.0-1.0 H BILIRUBIN DIRECT (test code = BILD) 0.43 mg/dL 0.0-0.20 H SGOT/AST (test code = AST) 50 IUnit/L 15-37 H SGPT/ALT (test code = ALT) 56 IUnit/L 12-78 N ALKALINE PHOSPHATASE TOTAL (test code = ALKP) 130 IUnit/L 45-117 H Note change in reference range due to change in reagent. [id number] 16:29:00* Test Item Value Reference Range Interpretation Comme nts LIPASE (test code = LIP) 121 U/L 73.0-393.0 N BASIC METABOLIC [id number] 16:16:00* Test Item Value Reference Range Interpretation Comme nts SODIUM (test code = NA) 137 mmol/L 136-145 N POTASSIUM (test code = K) 3.4 mmol/L 3.5-5.1 L CHLORIDE (test code = CL) 103.0 mmol/L 98-107 N CARBON DIOXIDE (test code = CO2) mmol/L 21-32 ANION GAP (test code = GAP) 10-20 GLUCOSE (test code = GLU) mg/dL 74-106 BLOOD UREA NITROGEN (test co de = BUN) mg/dL 7-18 GLOMERULAR FILTRATION RATE ( test code = GFR) mL/min >=60 CREATININE (test code = CREAT) mg/dL 0.7-1.3 BUN/CREATININE RATIO (test c ode = BUN/CREA) 10-20 CALCIUM (test code = CA) mg/dL 8.5-10.1 HEPATIC FUNCTION [id number] 16:16:00* Test Item Value Reference Range Interpretation Comme nts TOTAL PROTEIN (test code = PROT) gram/dL 6.4-8.2 ALBUMIN (test code = ALB) g/dL 3.4-5.0 GLOBULIN (test code = GLOB) gram/dL 2.7-4.2 ALBUMIN/GLOBULIN RATIO (test code = A/G) 0.75-1.50 BILIRUBIN TOTAL (test code = BILT) mg/dL 0.0-1.0 BILIRUBIN DIRECT (test code = BILD) mg/dL 0.0-0.20 SGOT/AST (test code = AST) IUnit/L 15-37 SGPT/ALT (test code = ALT) IUnit/L 12-78 ALKALINE PHOSPHATASE TOTAL ( test code = ALKP) IUnit/L 45-117 [id number] 16:16:00* Test Item Value Reference Range Interpretation Comme nts LIPASE (test code = LIP) U/L 73.0-393.0 CBC W/O [id number] 15:53:00* Test Item Value Reference Range Interpretation Comme nts WHITE BLOOD CELL (test code = WBC) 6.5 K/mm3 4.5-12.5 N RED BLOOD CELL (test code = RBC) 5.17 mill/mm3 4.0-5.8 N HEMOGLOBIN (test code = HGB) 17.1 gram/dL 13.0-17.5 N HEMATOCRIT (test code = HCT) 50.0 % 42.0-52.0 N MEAN CELL VOLUME (test code = MCV) 96.7 fL 80-98 N MEAN CELL HGB (test code = MCH) 33.1 picogram 27.0-33.0 H MEAN CELL HGB CONCETRATION (test code = MCHC) 34.2 gram/dL 33.0-36.0 N RED CELL DISTRIBUTION WIDTH (test code = RDW) 12.8 % 11.6-16.2 N PLATELET COUNT (test code = PLT) 154 K/mm3 150-450 N MEAN PLATELET VOLUME (test c ode = MPV) 10.2 fL 6.7-11.0 N Notes Date/Time Note Provider Source 2021-04-06 08:49:00 [facility] ([facility]) EMERGENCY PROVIDER REPORT REPORT#:[id number] REPORT STATUS: Signed DATE:04/06/21 TIME: 0849 PATIENT: LONNIE AGUILAR UNIT #: [id number] ROOM/BED: AGE: 40 SEX: M PCP PHYS: Undefined Provider SERVICE AUTHOR: Choco Lorenz MD * ALL edits or amendments must be made on the electronic/computer document * HPI-URI/Cough/Cold General Initial Greet Date/Time 04/06/21 0842 Presentation Chief Complaint Cough, non-productive Hx Obtained From Patient Onset Occurred Gradual, Days ago Symptom Duration Since onset Progression since Onset Unchanged Context of Onset Exposure, sick contacts (with covid) Location gen Quality Unable to verbalize Radiation Does not radiate Severity: Onset Mild Severity: Current No pain currently Associated with Reports: Cough. Denies: Abdominal pain, Chest pain, Fever, Headache, Neck pain, Shortness of breath, Sputum production, Vomiting. Exacerbated by Nothing Relieved by Nothing Review of Systems ROS Statements All systems rev neg except as marked. Focused Review of Systems Respiratory Reports: Cough, non-productive. Denies: Dyspnea on exertion, Hemoptysis, Parox nocturnal dyspnea, Pleuritic pain, Shortness of breath, Wheezing. GI Denies: Abdominal pain, Diarrhea, Nausea, Vomiting. Additional Review of Systems Cardiovascular Denies: Chest pain, Dyspnea on exertion, Edema, Orthopnea, Palpitations, Parox nocturnal dyspnea, Syncope. Past Medical History - Adult Stated Complaint EXPOSED TO COVID, COUGH Allergies Coded Allergies: No Known Allergies (04/06/21) Home Medications Reported Medications No Known Home Medications Pt reports no significant: Past medical history, Past surgical history Alcohol Use Denies EtOH use Drug Use Denies recreational drugs Smoking status: Smoking status for patients 13 years old or older: Current every day smoker Physical Exam Vital Signs Vital Signs First Documented: Result Date Time Pulse Ox 98 04/06 0842 B/P 129/87 04/06 0842 B/P Mean 101 04/06 0742 O2 Delivery Room air 04/06 841 Temp 36.6 04/06 841 Pulse 85 04/06 841 Resp 16 04/06 841 Last Documented: Result Date Time Pulse Ox 98 04/06 0742 B/P 129/87 04/06 0742 B/P Mean 101 04/06 0742 O2 Delivery Room air 04/06 841 Temp 36.6 04/06 841 Pulse 85 04/06 841 Resp 16 04/06 841 Review of Vital Signs Reviewed Focused PE General/Const General/Const Awake, Alert, Well appearing, Not toxic appearing Eyes Eyes PERRL Ears/Nose/Throat Ears/Nose/Throat Airway patent, Mucous membranes moist, Pharynx NL, Tympanic membs NL, Ext aud canal NL, Nose exam NL, No sinus tenderness MS Neck Neck Supple, No meningismus, Full range of motion, No adenopathy, No swelling , Non-tender Resp/Chest Respiratory/Chest Breath sounds NL, Breath sounds = bilat, No respiratory distress, No rales, No rhonchi, No wheezing, No retractions, No stridor Cardiovascular Cardiovascular Heart rate NL, Regular rhythm, Heart sounds NL, Peripheral circulation NL Abdomen/GI Abdomen/GI Soft, Non-tender, No guarding, No rebound Skin Skin Color NL, No rash, Warm, Dry, Turgor NL Neurologic Neurologic Oriented X3, Speech NL, No motor deficits, No sensory deficits Interpretation Diagnostics Lab Results Interpretation Results Laboratory Tests: 04/06 850 Serology SARS-CoV-2 Ag (Rapid) (NEGATIVE) NEGATIVE Microbiology: Date/Time Procedure - Status Source Growth 04/06 850 Group A Streptococcus Screen (SOUTH) - COMP THROAT 04/06 850 Influenza Virus Type B Antigen - COMP NASAL 04/06 850 Influenza Virus Type A Antigen - COMP NASAL Point of Care Testing Pulse Oximetry Pulse Ox % 99 On: Room air Interpretation Interpreted by me, Pulse oximetry normal Time 51 Re-Evaluation MDM Re-Evaluation/Progress Re-Evaluation/Progress Text/Dict Note Patient resting comfortably and feels well. Neuro exam including strength, sensation, CN 2-12, cerebellar, gait normal. No chest pain or shortness of breath. Lungs cta bilaterally. Abdomen soft, NTND. Tolerating po intake. Wants to go home. Will f/u with referred doctor and/or return for new/worsening symptoms. Time of Re-Eval 929 Re-Eval Status Improved Patient Discharge Departure Vital Signs/Condition Vital Signs First Documented: Result Date Time Pulse Ox 98 04/06 0842 B/P 129/87 / 0842 B/P Mean 101 04/06 0842 O2 Delivery Room air 04/06 841 Temp 36.6 04/06 0842 Pulse 85 04/06 0842 Resp 16 04/06 841 Last Documented: Result Date Time Pulse Ox 98 04/06 0842 B/P 129/87 04/06 0842 B/P Mean 101 04/06 0842 O2 Delivery Room air 04/06 0842 Temp 36.6 04/06 0842 Pulse 85 04/06 0842 Resp 16 04/06 841 All vital signs available at the time of this entry have been reviewed. Clinical Impression Clinical Impression Primary Impression: URI (upper respiratory infection) Disposition Decision Discharge )( Discharged to Home Yes )( Time 929 )( Date 04/06/21 Discharge/Care Plan Counseled Regarding Diagnosis, Lab results, Need for follow-up, When to return to ED (Auto) Prescriptions Current Visit Scripts No Known Home Medications Patient Instructions ED URI, Viral, No Abx (Adult) Referrals Resource Referral: Toni Yen [facility] Follow-Up: 1-2 Days Address: [address] [place] [address] at 0931 RPT #:[id number] END OF REPORT [facility] 2019-08-18 11:45:00 [facility] ([facility] OR A [facility]AMPUS OF [facility] EMERGENCY PROVIDER REPORT REPORT#:[id number] REPORT STATUS: Signed DATE:08/18/19 TIME: 1145 PATIENT: LONNIE AGUILAR UNIT #: [id number] ROOM/BED: AGE: 38 SEX: M PCP PHYS: No Primary or Family Physician SERVICE AUTHOR: Arcadio Kidd * ALL edits or amendments must be made on the electronic/computer document * HPI-GI Bleed/Rectal Prob General Confirmed Patient Yes Initial Greet Date/Time 08/18/19 1137 Presentation Chief Complaint FECAL LEAKAGE Hx Obtained From Patient Onset Occurred Weeks ago (4 -5 ), Chronic, Spontaneous Exacerbated by Bowel movement Relieved by Nothing Context Related History Denies: Coagulopathy, Constipation, Current anticoagulant use, Diverticulosis, EtOH use, GI bleed, Hemorrhoids, Inflam bowel disease, Liver disease, Malignancy , Polyps, Recent abdominal surgery, Recent colonoscopy, Recent rectal surgery, Recent steroid use, Rectal fissure, Varices. Recent Healthcare No recent doctor visit, No recent hospitalization Similar Sx Previous No Free Text HPI Notes Free Text HPI Notes 38-year-old male ambulatory to the ED with complaints of a month of increasing painless "fecal incontinence". He describes small amount of blood (only on toliet tissue) and "small amounts" of uncontrollable liquid fecal soiling in his underwear after solid bowel movements 2-3 times a day that first started approximately a month ago. Anne using pads in underwear. No prior similar problems. He has difficulty starting his urinary stream at times. Occasionally has numbness in the right leg. No back pain, muscle weakness, or diff walking/ doing his job. He is a laborer prestressed concrete and construction. Denies prior back injuries or surgeries. No history of colorectal or problems in the past. Denies weight loss, abdominal pain, fever/chills, night sweats, bloody urine, grossly bloody stools. Denies rectal discomfort, abdomen pain, pain/blood. Risk-GI Bleed/Rectal Prob Risk Stratification Bleeding Risk factors reviewed, No risk factors Review of Systems ROS Statements All systems rev neg except as marked. Focused Review of Systems Constitutional Denies: Fever, Recent wt loss, Weakness - generalized. GI Denies: Abdominal pain, Anorexia, Belching, Bloody/tarry stool (see hpi), Constipation, Diarrhea, Dysphagia, Hematemesis, Hematochezia, Mucousy stool, Melena, Nausea, Rectal pain, Vomiting. Skin Denies: Rash, Swelling. Past Medical History - Adult Stated Complaint FECAL INCONTINENCE Allergies Coded Allergies: No Known Allergies (08/18/19) Home Medications Reported Medications No Known Home Medications Review of Nursing Notes Rev avail, and agree Past Medical History: Denies: Alcoholism/subst abuse, Diabetes mellitus. Additional Medical History MIGRAINES Past Surgical History: Denies: Abdominal surgery. Alcohol Use Denies EtOH use Drug Use Denies recreational drugs Smoking status for patients 13 years old or older: Current every day smoker Physical Exam Vital Signs Vital Signs First Documented: Result Date Time Pulse Ox 98 08/17 1136 B/P 157/92 08/17 1136 B/P Mean 113 08/17 1136 O2 Delivery Room air 08/17 1136 Temp 97.3 08/17 1136 Pulse 88 08/17 1136 Resp 16 08/17 1136 Last Documented: Result Date Time Pulse Ox 98 08/17 1136 B/P 157/92 08/17 1136 B/P Mean 113 08/17 1136 O2 Delivery Room air 08/17 1136 Temp 97.3 08/17 1136 Pulse 88 08/17 1136 Resp 16 08/17 113 Review of Vital Signs Reviewed Focused PE General/Const General/Const Awake, Alert, No acute distress, Well appearing, Well hydrated, Cooperative, Not toxic appearing Resp/Chest Respiratory/Chest Breath sounds NL, Breath sounds = bilat, No respiratory distress Cardiovascular Cardiovascular Heart rate NL, Regular rhythm, Cap refill not delayed Abdomen/GI Abdomen/GI Atraumatic, Soft, Non-tender, McBurney's non-tender, No guarding, No rebound, BS normoactive, No distention, No hernia, No palpable mass, No pulsatile mass Skin Skin No rash, Warm, Dry Rectum Rectum/Perineum Atraumatic, Blood - occult heme neg, No gross blood, No discharge, No fecal impaction, No fissures, No lesions, No mass, Sphincter tone NL (strong, nl), Prostate NL, No saddle anesthesia, bulbocavernosa reflex not checked, no obvious fecal soiling in pt;s underclothes Text/Dict Notes die mechanic present. No stool in rectum. Mildly enlarged smooth nontender prostate. Rectum/Perineum Abnl Hemorrhoid external. Negative: Hemorrhoid bleeding, Hemorrhoid inflamed, Hemorrhoid tender, Hemorrhoid thrombosed, Saddle anesthesia present, Sphincter tone absent, Sphincter tone decreased. Neurologic Neurologic Oriented X3, Speech NL, Memory NL, Gait NL Interpretation Diagnostics Lab Results Interpretation Results Laboratory Tests 08/18/19 1214: [Embedded Image Not Available] Laboratory Tests: 08/17 1214 Hematology WBC (4.80 - 10.80 x10 3/uL) 6.26 RBC (4.7 - 6.1 x10 6/uL) 5.07 Hgb (14.0 - 17.0 G/DL) 17.4 H Hct (42 - 52 %) 49.6 MCV (80 - 94 FL) 97.8 H MCH (27 - 31 PG) 34.3 H MCHC (33 - 37 G/DL) 35.1 RDW Coeff of Elaina (11.5 - 14.5 %) 13.7 Plt Count (150 - 450 x10 3/uL) 144 L MPV (7.4 - 10.4 FL) 9.9 Neut % (Auto) (42 - 86 %) 64.5 Lymph % (Auto) (24 - 44 %) 24.4 Carver % (Auto) (0.0 - 4.0 %) 9.9 H Eos % (Auto) (0.0 - 2.7 %) 1.0 Baso % (Auto) (0.0 - 0.5 %) 0.2 Eos # (Auto) (0.0 - 0.5 x10 3/uL) 0.06 Baso # (Auto) (0.0 - 0.2 x10 3/uL) 0.01 Absolute Neuts (auto) (1.8 - 7.7 x10 3/uL) 4.04 Absolute Lymphs (auto) (1.0 - 4.8 x10 3/uL) 1.53 Absolute Monos (auto) (0.0 - 0.8 x10 3/uL) 0.62 Microbiology: Date/Time Procedure - Status Source Growth 08/17 1300 Occult Blood - COMP STOOL Lab Statement Laboratory studies reviewed and considered in the medical decision-making. Re-Evaluation MDM Free Text MDM Notes Free Text MDM Notes Pt reports fecal incontinence. rectal exam is normal. Normal sphincter tone. Has small external noninflamed hemorroids that may explain small amt of blood on toliet paper. FOBT negative. Pt is smoker with elevated Hgb. Pt needs primary care provider. Explained he may need GI eval. Today, no intervention needed except increase fiber/water in diet. Patient Discharge Departure Vital Signs/Condition Vital Signs First Documented: Result Date Time Pulse Ox 98 08/17 1136 B/P 157/92 08/17 1136 B/P Mean 113 08/17 1136 O2 Delivery Room air 08/17 1136 Temp 97.3 08/17 1136 Pulse 88 08/17 1136 Resp 16 08/17 1136 Last Documented: Result Date Time Pulse Ox 98 08/17 1136 B/P 157/92 08/17 1136 B/P Mean 113 08/17 1136 O2 Delivery Room air 08/17 1136 Temp 97.3 08/17 1136 Pulse 88 08/17 1136 Resp 16 08/17 1136 All vital signs available at the time of this entry have been reviewed. Clinical Impression Clinical Impression Primary Impression: Fecal soiling Disposition Decision Discharge )( Discharged to Home Yes )( Time 1330 )( Date 08/18/19 Discharge/Care Plan Counseled Regarding Diagnosis, Lab results, Need for follow-up, Smoking cessation, When to return to ED (Auto) Prescriptions Current Visit Scripts No Known Home Medications Referrals No Primary or Family Physician (PCP) Quality Measures BP F/U for HTN F/u with PCP/other doc Tobacco Screening/Cessation 18 years or older, Tobacco user, Smoking cessation offered, Declined help, Counseled 3-10 minutes at 1442 RPT #:[id number] END OF REPORT [facility] 2019-08-18 11:45:00 [facility] ([facility]) OR A CAMPUS OF [facility] EMERGENCY PROVIDER REPORT REPORT#:[id number] REPORT STATUS: Signed DATE:08/18/19 TIME: 1145 PATIENT: LONNIE AGUILAR UNIT #: [id number] ROOM/BED: AGE: 38 SEX: M PCP PHYS: No Primary or Family Physician SERVICE AUTHOR: Arcadio Kidd * ALL edits or amendments must be made on the electronic/computer document * Arcadio Kidd 08/18/19 1145: HPI-GI Bleed/Rectal Prob General Confirmed Patient Yes Presentation Chief Complaint FECAL LEAKAGE Hx Obtained From Patient Onset Occurred Weeks ago (4 -5 ), Chronic, Spontaneous Exacerbated by Bowel movement Relieved by Nothing Context Related History Denies: Coagulopathy, Constipation, Current anticoagulant use, Diverticulosis, EtOH use, GI bleed, Hemorrhoids, Inflam bowel disease, Liver disease, Malignancy , Polyps, Recent abdominal surgery, Recent colonoscopy, Recent rectal surgery, Recent steroid use, Rectal fissure, Varices. Recent Healthcare No recent doctor visit, No recent hospitalization Similar Sx Previous No Free Text HPI Notes Free Text HPI Notes 38-year-old male ambulatory to the ED with complaints of a month of increasing painless "fecal incontinence". He describes small amount of blood (only on toliet tissue) and "small amounts" of uncontrollable liquid fecal soiling in his underwear after solid bowel movements 2-3 times a day that first started approximately a month ago. Anne using pads in underwear. No prior similar problems. He has difficulty starting his urinary stream at times. Occasionally has numbness in the right leg. No back pain, muscle weakness, or diff walking/ doing his job. He is a laborer prestressed concrete and construction. Denies prior back injuries or surgeries. No history of colorectal or problems in the past. Denies weight loss, abdominal pain, fever/chills, night sweats, bloody urine, grossly bloody stools. Denies rectal discomfort, abdomen pain, pain/blood. Risk-GI Bleed/Rectal Prob Risk Stratification Bleeding Risk factors reviewed, No risk factors Review of Systems ROS Statements All systems rev neg except as marked. Focused Review of Systems Constitutional Denies: Fever, Recent wt loss, Weakness - generalized. GI Denies: Abdominal pain, Anorexia, Belching, Bloody/tarry stool (see hpi), Constipation, Diarrhea, Dysphagia, Hematemesis, Hematochezia, Mucousy stool, Melena, Nausea, Rectal pain, Vomiting. Skin Denies: Rash, Swelling. Past Medical History - Adult Stated Complaint FECAL INCONTINENCE Allergies Coded Allergies: No Known Allergies (08/18/19) Home Medications Reported Medications No Known Home Medications Review of Nursing Notes Rev avail, and agree Past Medical History: Denies: Alcoholism/subst abuse, Diabetes mellitus. Additional Medical History MIGRAINES Past Surgical History: Denies: Abdominal surgery. Alcohol Use Denies EtOH use Drug Use Denies recreational drugs Smoking status for patients 13 years old or older: Current every day smoker Physical Exam Vital Signs Vital Signs First Documented: Result Date Time Pulse Ox 98 08/17 1136 B/P 157/92 08/17 1136 B/P Mean 113 08/17 1136 O2 Delivery Room air 08/17 113 Temp 97.3 08/17 1136 Pulse 88 08/17 1136 Resp 16 08/17 1136 Last Documented: Result Date Time Pulse Ox 98 08/17 1136 B/P 157/92 08/17 113 B/P Mean 113 08/17 113 O2 Delivery Room air 08/18 1135 Temp 97.3 08/18 1135 Pulse 88 08/18 1135 Resp 16 08/18 1135 Review of Vital Signs Reviewed Focused PE General/Const General/Const Awake, Alert, No acute distress, Well appearing, Well hydrated, Cooperative, Not toxic appearing Resp/Chest Respiratory/Chest Breath sounds NL, Breath sounds = bilat, No respiratory distress Cardiovascular Cardiovascular Heart rate NL, Regular rhythm, Cap refill not delayed Abdomen/GI Abdomen/GI Atraumatic, Soft, Non-tender, McBurney's non-tender, No guarding, No rebound, BS normoactive, No distention, No hernia, No palpable mass, No pulsatile mass Skin Skin No rash, Warm, Dry Rectum Rectum/Perineum Atraumatic, Blood - occult heme neg, No gross blood, No discharge, No fecal impaction, No fissures, No lesions, No mass, Sphincter tone NL (strong, nl), Prostate NL, No saddle anesthesia, bulbocavernosa reflex not checked, no obvious fecal soiling in pt;s underclothes Text/Dict Notes die mechanic present. No stool in rectum. Mildly enlarged smooth nontender prostate. Rectum/Perineum Abnl Hemorrhoid external. Negative: Hemorrhoid bleeding, Hemorrhoid inflamed, Hemorrhoid tender, Hemorrhoid thrombosed, Saddle anesthesia present, Sphincter tone absent, Sphincter tone decreased. Neurologic Neurologic Oriented X3, Speech NL, Memory NL, Gait NL Interpretation Diagnostics Lab Results Interpretation Results Laboratory Tests 08/18/19 1214: [Embedded Image Not Available] Laboratory Tests: 08/17 1213 Hematology WBC (4.80 - 10.80 x10 3/uL) 6.26 RBC (4.7 - 6.1 x10 6/uL) 5.07 Hgb (14.0 - 17.0 G/DL) 17.4 H Hct (42 - 52 %) 49.6 MCV (80 - 94 FL) 97.8 H MCH (27 - 31 PG) 34.3 H MCHC (33 - 37 G/DL) 35.1 RDW Coeff of Elaina (11.5 - 14.5 %) 13.7 Plt Count (150 - 450 x10 3/uL) 144 L MPV (7.4 - 10.4 FL) 9.9 Neut % (Auto) (42 - 86 %) 64.5 Lymph % (Auto) (24 - 44 %) 24.4 Carver % (Auto) (0.0 - 4.0 %) 9.9 H Eos % (Auto) (0.0 - 2.7 %) 1.0 Baso % (Auto) (0.0 - 0.5 %) 0.2 Eos # (Auto) (0.0 - 0.5 x10 3/uL) 0.06 Baso # (Auto) (0.0 - 0.2 x10 3/uL) 0.01 Absolute Neuts (auto) (1.8 - 7.7 x10 3/uL) 4.04 Absolute Lymphs (auto) (1.0 - 4.8 x10 3/uL) 1.53 Absolute Monos (auto) (0.0 - 0.8 x10 3/uL) 0.62 Microbiology: Date/Time Procedure - Status Source Growth 08/17 1300 Occult Blood - COMP STOOL Lab Statement Laboratory studies reviewed and considered in the medical decision-making. Re-Evaluation MDM Free Text MDM Notes Free Text MDM Notes Pt reports fecal incontinence. rectal exam is normal. Normal sphincter tone. Has small external noninflamed hemorroids that may explain small amt of blood on toliet paper. FOBT negative. Pt is smoker with elevated Hgb. Pt needs primary care provider. Explained he may need GI eval. Today, no intervention needed except increase fiber/water in diet. Patient Discharge Departure Vital Signs/Condition Vital Signs First Documented: Result Date Time Pulse Ox 98 08/17 1136 B/P 157/92 08/17 1136 B/P Mean 113 08/17 1136 O2 Delivery Room air 08/17 1136 Temp 97.3 08/17 1136 Pulse 88 08/17 1136 Resp 16 08/17 1136 Last Documented: Result Date Time Pulse Ox 98 08/17 1136 B/P 157/92 08/17 1136 B/P Mean 113 08/17 1136 O2 Delivery Room air 08/17 1136 Temp 97.3 08/17 1136 Pulse 88 08/17 1136 Resp 16 08/17 1136 All vital signs available at the time of this entry have been reviewed. Clinical Impression Clinical Impression Primary Impression: Fecal soiling Disposition Decision Discharge )( Discharged to Home Yes )( Time 1330 )( Date 08/18/19 Discharge/Care Plan Counseled Regarding Diagnosis, Lab results, Need for follow-up, Smoking cessation, When to return to ED (Auto) Prescriptions Current Visit Scripts No Known Home Medications Referrals No Primary or Family Physician (PCP) Quality Measures BP F/U for HTN F/u with PCP/other doc Tobacco Screening/Cessation 18 years or older, Tobacco user, Smoking cessation offered, Declined help, Counseled 3-10 minutes Aquilino Perera 08/23/19 0247: HPI-GI Bleed/Rectal Prob General Initial Greet Date/Time 08/18/19 1137 Patient Discharge Departure Supervising Physician Note MidLv Saw Pt Alone I have reviewed the PA/FILTROSE CRUSHER's note and plan of care. I was available for consultation as needed at all times during the patient's visit in the emergency department. I agree with the clinical impression, plan and disposition. at 1442 at 0247 RPT #:[id number] END OF REPORT [facility] 2019-01-01 09:30:00 [facility] ([facility]) EMERGENCY PROVIDER REPORT REPORT#:[id number] REPORT STATUS: Signed DATE:01/01/19 TIME: 929 PATIENT: LONNIE AGUILAR UNIT #: [id number] ROOM/BED: AGE: 38 SEX: M PCP PHYS: No Primary Care Physician SERVICE AUTHOR: Estelita Bernard NP * ALL edits or amendments must be made on the electronic/computer document * HPI- Male General Confirmed Patient Yes Patient Type New patient Initial Greet Date/Time 01/01/19 0924 PCP no pcp Presentation Chief Complaint Flank pain R Hx Obtained From Patient Onset Occurred Days ago (3) Symptom Duration Since onset Progression since Onset Waxes and wanes Context of Onset Spontaneous Caused by No trauma by history Location Flank R Quality Painful Radiation No: Does not radiate. Severity: Onset Mild Severity: Current Moderate, Pain level 6 out of 10 Associated with Denies: Abdominal pain, Abrasion, Anorexia, Cannot retract foreskin, Chills, Constipation, Fever, Hematemesis, Laceration, Loss of consciousness, Nausea, Penile discharge, Rash, Scrotal erythema, Scrotal swelling, UTI symptoms, Vomiting. Associated Other Pt denies other symptoms Exacerbated by Nothing Relieved by Nothing Context Immunization Status General All up to date Recent Healthcare No recent doctor visit, No recent hospitalization Similar Sx Previous No Free Text HPI Notes Free Text HPI Notes 38-year-old male who comes in with a complaint of right flank pain. Patient states that symptoms started three days ago. Patient denies injury, trauma, or sick contacts. Patient denies radiation of pain. Patient denies exacerbating factors or relieving factors. Patient describes the pain as a stabbing pain. Patient denies fever, chills, chest pain, shortness of breath, n/v/d, constipation, testicular pain or swelling, penile discharge, or urinary symptoms. Patient admits to being in a monogamous relationship and denies any concerns for STI. patient denies pmh or psh. Patient denies psh. Patient ambulatory to exam room in no nad. Risk- Male Risk Stratification Torsion Risk factors reviewed, Risk factors N/A Review of Systems Focused Review of Systems Constitutional Denies: Chills, Fever, Lethargy. GI Denies: Abdominal pain, Diarrhea, Nausea, Vomiting. Male Reports: Flank pain (Right ). Denies: Dysuria, Hematuria, Incontinence, Nocturia, Penile discharge, Penile lesion, Scrotal swelling, Testicular pain, Testicular swelling, Urinary frequency, Urinary urgency, Urination decreased, Urination increased. Musculoskeletal Denies: Back pain, Extremity pain. Skin Denies: Diaphoresis, Rash. Past Medical History - Adult Stated Complaint FLANK PAIN Allergies Coded Allergies: No Known Allergies (10/17/18) Home Medications Reported Medications No Known Home Medications Review of Nursing Notes Rev avail, and agree, Triage notes reviewed Pt reports no significant: Past medical history, Past surgical history Additional Medical History MIGRAINES Alcohol Use Denies EtOH use Drug Use Denies recreational drugs Smoking status for patients 13 years old or older: Current every day smoker Pack years (pk/d)*(yrs): 15 Date last smoked: still smoking Ambulatory Status Independent Physical Exam Vital Signs Vital Signs First Documented: Result Date Time Pulse Ox 100 01/01 918 B/P 125/77 01/01 918 B/P Mean 93 01/01 918 O2 Delivery Room air 01/01 918 Temp 36.4 01/01 918 Pulse 87 01/01 918 Resp 18 01/01 918 Last Documented: Result Date Time Pulse Ox 100 01/01 1313 B/P 120/72 01/01 1313 B/P Mean 88 01/01 1313 O2 Delivery Room air 01/01 1313 Temp 36.7 01/01 1313 Pulse 72 01/01 1313 Resp 16 01/01 1313 Review of Vital Signs Reviewed Focused PE General/Const General/Const Awake, Alert, Well appearing Abdomen/GI Abdomen/GI Soft, No guarding, No rebound Tenderness/Guarding/Rebound Tender flank R. Skin Skin Color NL, No rash, Warm, Dry, Turgor NL Genitourinary General Junior Manufacturing Engineer present (Hannah RN) Male Genitourinary Inspection NL, No penile discharge, Cremasteric reflex NL, Epididymis NL Additional PE Resp/Chest Respiratory/Chest Breath sounds NL, Breath sounds = bilat, No respiratory distress Cardiovascular Cardiovascular Heart rate NL, Regular rhythm, Heart sounds NL, Cap refill not delayed, Peripheral circulation NL MS Back Flank/Spine/Paraspinal Flank tender R. Rectum Text/Dict Notes Junior Manufacturing Engineer Hannah RN Prostate Boggy, Tender. Interpretation Diagnostics Lab Results Interpretation Results Laboratory Tests 01/01/19929: [Embedded Image Not Available] Laboratory Tests: 01/01 Chemistry Sodium (136 - 145 mmol/L) 142 Potassium (3.5 - 5.1 mmol/L) 3.6 Chloride (98 - 107 mmol/L) 106.0 Carbon Dioxide (21 - 32 mmol/L) 30.0 Anion Gap (10 - 20) 9.6 L BUN (7 - 18 mg/dL) 12 Creatinine (0.7 - 1.3 mg/dL) 0.90 Glomerular Filtr Rate (>=60 mL/min) > 60 BUN/Creatinine Ratio (10 - 20) 13.9 Glucose (74 - 106 mg/dL) 71 L Calcium (8.5 - 10.1 mg/dL) 8.9 Total Bilirubin (0.0 - 1.0 mg/dL) 0.80 Direct Bilirubin (0.0 - 0.20 mg/dL) 0.31 H AST (15 - 37 IUnit/L) 40 H ALT (12 - 78 IUnit/L) 46 Total Alk Phosphatase (45 - 117 IUnit/L) 117 Total Protein (6.4 - 8.2 gram/dL) 7.9 Albumin (3.4 - 5.0 g/dL) 3.4 Globulin (2.7 - 4.2 gram/dL) 4.5 H Albumin/Globulin Ratio (0.75 - 1.50) 0.8 Lipase (73.0 - 393.0 U/L) 124 Hematology WBC (4.5 - 12.5 K/mm3) 5.2 RBC (4.0 - 5.8 mill/mm3) 4.74 Hgb (13.0 - 17.5 gram/dL) 15.8 Hct (42.0 - 52.0 %) 46.5 MCV (80 - 98 fL) 98.1 H MCH (27.0 - 33.0 picogram) 33.3 H MCHC (33.0 - 36.0 gram/dL) 34.0 RDW (11.6 - 16.2 %) 13.2 Plt Count (150 - 450 K/mm3) 139 L MPV (6.7 - 11.0 fL) 10.3 Urines Urine Color (YELLOW) YELLOW Urine Appearance (CLEAR) CLEAR Urine pH (5.0 - 8.0) 5.5 Ur Specific [place] (1.001 - 1.035) 1.028 Urine Protein (NEGATIVE mg/dL) 20 (Trace) H Urine Glucose (UA) (NEGATIVE mg/dL) NEGATIVE Urine Ketones (NEGATIVE mg/dL) NEGATIVE Urine Blood (NEGATIVE mg/dL) Negative Urine Nitrite (NEGATIVE) NEGATIVE Urine Bilirubin (NEGATIVE mg/dL) NEGATIVE Urine Urobilinogen (NEGATIVE mg/dL) 6.0 (2+) H Ur Leukocyte Esterase (NEGATIVE Nica/uL) 75 Nica/uL (1+) H Urine RBC (0 - 5 #/HPF) 0-2 Urine WBC (0 - 5 per HPF) 21-50 H Ur Epithelial Cells (FEW per HPF) FEW Urine Bacteria (NONE #/HPF) FEW H Urine Mucus (FEW #/LPF) FEW Microbiology: Date/Time Procedure - Status Source Growth 01/02 928 Urine Culture - RES URINE Recent Impressions: CAT SCAN - CT ABD PELVIS W/O CONT 01/01 9422 Report Impression - Status: SIGNED Entered: 01/01/2019 1013 IMPRESSION: No hydroureteronephrosis or calyceal stones. Unremarkable decompressed urinary bladder is limited in evaluation. No free fluid or free air. Appendix is not visible however no bowel obstruction or colitis or diverticulitis or enteritis. Study is limited due to lack of intra-abdominal and subcutaneous fat and due to lack of contrast. Impression By: [email or web address] - Maverick Eckert M.D. Lab Imaging Statement Laboratory radiographic studies reviewed and considered in the medical decision-making. Point of Care Testing Urinalysis Interpretation Positive leukocyte est, Positive WBC's Pulse Oximetry Pulse Ox % 100 On: Room air Interpretation Interpreted by me Time [address] Abdomen/Pelvis Study type No contrast Interpretation/Wet Read by Interpret - Radiologist Reviewed by myself NL Abd/Pelvis CT Findings No acute disease Re-Evaluation MDM Free Text MDM Notes Free Text MDM Notes No significant leukocytosis, no fever, CT abdomen and pelvis negative for acute disease. Patient educated on diagnosis, supportive treatment at home, diet modifications, maintaining hydration, s/s of when to return to ER, and pcp follow up. Patient prescribed Ketorolac and Bactrim. Patient verbalized understanding. Patient was provided with community resources where she can follow up within the next 24 to 48 hours. Patient was also provided with a referral to urology specialist for further evaluation. Patient verbalized understanding. Additional Text I reevaluated patient prior to discharge, patient in no active distress. Re-Evaluation/Progress Re-Evaluation/Progress 1 Time of Re-Eval 1046 Re-Eval Status Unchanged, Waiting for medications and IV fluids to be given Eval Following Treatment Condition unchanged Pain Re-Evaluation Pain unchanged Exam Post Tx - General Active, Alert, Appears well Exam Post Tx - Sys Review Mental status baseline Plan Post Re-Eval Plan observe Re-Evaluation/Progress 2 Time of Re-Eval 1145 Re-Eval Status Improved Eval Following Treatment Pt. feels better, Condition improved Pain Re-Evaluation Denies pain Exam Post Tx - General Active, Alert, Appears well Exam Post Tx - Sys Review Mental status baseline Plan Post Re-Eval Plan observe Re-Evaluation/Progress 3 Time of Re-Eval 1238 Re-Eval Status Improved Eval Following Treatment Pt. feels better, Condition improved Pain Re-Evaluation Pain improved Exam Post Tx - General Active, Alert, Appears well, Capillary refill normal, Hydration normal Exam Post Tx - Sys Review Mental status baseline Plan Post Re-Eval Plan discharge ED Course Medication(s) Ordered Medication(s) Ordered: Anti-Infective Agents Sig/Blade Start time Last Medication Dose Route Stop Time Status Admin Ceftriaxone Sodium 1,000 MG X1ED STA 01/01 1027 DC 01/01 Sodium Chloride 10 ML IV 01/01 1029 1055 Central Nervous System Agents Sig/Blade Start time Last Medication Dose Route Stop Time Status Admin Ketorolac 30 MG X1ED STA 01/01 0929 DC 01/01 Tromethamine IV 01/01 0930 1056 Electrolytic, Caloric, And Mariya Sig/Blade Start time Last Medication Dose Route Stop Time Status Admin Sodium Chloride 1,000 ML X1ED STA 01/01 0929 DC 01/01 IV 01/01 1028 1056 Gastrointestinal Drugs Sig/Blade Start time Last Medication Dose Route Stop Time Status Admin Ondansetron HCl 4 MG X1ED PRN PRN 01/01 0930 DC 01/01 IV 1055 Consultation Consultation Referral/Consult Name Franc Moore Student Affairs Vice President Called Urology Requested Call Time 1243 Requested Call Date 01/01/19 Student Affairs Vice President Will see patient, Agrees with eval, Agrees with plan Free Text Consult Notes Discussed with Dr. Guzman patient's chief complaint, lab analysis urinalysis and CT abdomen pelvis results. Dr. Moore recommended that patient be treated with Bactrim for 2 weeks for acute bacterial prostatitis and follow-up in his office further evaluation. Patient Discharge Departure Vital Signs/Condition Vital Signs First Documented: Result Date Time Pulse Ox 100 01/01 0918 B/P 125/77 01/01 918 B/P Mean 93 01/01 0918 O2 Delivery Room air 01/01 918 Temp 36.4 01/01 918 Pulse 87 01/01 0918 Resp 18 01/01 918 Last Documented: Result Date Time Pulse Ox 100 01/01 1313 B/P 120/72 01/01 1313 B/P Mean 88 01/01 131 O2 Delivery Room air 01/01 131 Temp 36.7 01/01 131 Pulse 72 01/01 131 Resp 16 01/01 131 All vital signs available at the time of this entry have been reviewed. Condition Stable Clinical Impression Clinical Impression Primary Impression: Prostatitis, acute Secondary Impressions: UTI (urinary tract infection) Disposition Decision Discharge )( Discharged to Home Yes )( Time 1245 )( Date 01/01/19 Discharge/Care Plan Counseled Regarding Diagnosis, Lab results, Imaging studies, Need for follow-up, When to return to ED Prescriptions Bactrim and Ketorolac Prescriptions Reviewed Risks, Benefits, Alternative treatment Discharge Note I have spoken with the patient and/or caregivers. I have explained the patient's condition, diagnoses and treatment plan based on the information available to me at this time. I have answered the patient's and/or caregiver's questions and addressed any concerns. The patient and/or caregivers have as good an understanding of the patient's diagnosis, condition and treatment plan as can be expected at this point. The vital signs have been stable. The patient's condition is stable and appropriate for discharge from the emergency department. The patient will pursue further outpatient evaluation with the primary care physician or other designated or consulting physician as outlined in the discharge instructions. The patient and/or caregivers are agreeable to this plan of care and follow-up instructions have been explained in detail. The patient and/or caregivers have received these instructions in written format and have expressed an understanding of the discharge instructions. The patient and/or caregivers are aware that any significant change in condition or worsening of symptoms should prompt an immediate return to this or the closest emergency department or a call to 911. Quality Measures BP F/U for HTN Referred for BP f/u < 4wk, F/u with PCP/other doc Current Medications Attest: Medication review Smoking Cessation Screened, tobacco user, Tobacco cess intervention Tobacco Screening/Cessation 18 years or older, Smoking cessation offered, Counseled 3-10 minutes Smoking Cessation Counseling The patient was questioned regarding their smoking habits, and I have determined , as the patient's treating physician, that there is a medical necessity in regards to the patient's medical condition to provide smoking cessation program education. The patient was advised to stop smoking and counseled for a period of greater than 3 minutes. The patient was instructed to follow up with a primary care physician for smoking cessation and given information regarding local smoking cessation programs in the area. The patient received detailed discharge instructions as to how to stop smoking. The patient expressed an understanding of the need to follow up and the plan for smoking cessation. at 0053 RPT #:[id number] END OF REPORT [facility] 2019-01-01 09:30:00 [facility] ([facility]) EMERGENCY PROVIDER REPORT REPORT#:[id number] REPORT STATUS: Signed DATE:01/01/19 TIME: 929 PATIENT: LONNIE AGUILAR UNIT #: [id number] ROOM/BED: AGE: 38 SEX: M PCP PHYS: No Primary Care Physician SERVICE AUTHOR: Estelita Bernard FILTROSE CRUSHER * ALL edits or amendments must be made on the electronic/computer document * Estelita Bernard 01/01/19 0930: HPI- Male General Confirmed Patient Yes Patient Type New patient PCP no pcp Presentation Chief Complaint Flank pain R Hx Obtained From Patient Onset Occurred Days ago (3) Symptom Duration Since onset Progression since Onset Waxes and wanes Context of Onset Spontaneous Caused by No trauma by history Location Flank R Quality Painful Radiation No: Does not radiate. Severity: Onset Mild Severity: Current Moderate, Pain level 6 out of 10 Associated with Denies: Abdominal pain, Abrasion, Anorexia, Cannot retract foreskin, Chills, Constipation, Fever, Hematemesis, Laceration, Loss of consciousness, Nausea, Penile discharge, Rash, Scrotal erythema, Scrotal swelling, UTI symptoms, Vomiting. Associated Other Pt denies other symptoms Exacerbated by Nothing Relieved by Nothing Context Immunization Status General All up to date Recent Healthcare No recent doctor visit, No recent hospitalization Similar Sx Previous No Free Text HPI Notes Free Text HPI Notes 38-year-old male who comes in with a complaint of right flank pain. Patient states that symptoms started three days ago. Patient denies injury, trauma, or sick contacts. Patient denies radiation of pain. Patient denies exacerbating factors or relieving factors. Patient describes the pain as a stabbing pain. Patient denies fever, chills, chest pain, shortness of breath, n/v/d, constipation, testicular pain or swelling, penile discharge, or urinary symptoms. Patient admits to being in a monogamous relationship and denies any concerns for STI. patient denies pmh or psh. Patient denies psh. Patient ambulatory to exam room in no nad. Risk- Male Risk Stratification Torsion Risk factors reviewed, Risk factors N/A Review of Systems Focused Review of Systems Constitutional Denies: Chills, Fever, Lethargy. GI Denies: Abdominal pain, Diarrhea, Nausea, Vomiting. Male Reports: Flank pain (Right ). Denies: Dysuria, Hematuria, Incontinence, Nocturia, Penile discharge, Penile lesion, Scrotal swelling, Testicular pain, Testicular swelling, Urinary frequency, Urinary urgency, Urination decreased, Urination increased. Musculoskeletal Denies: Back pain, Extremity pain. Skin Denies: Diaphoresis, Rash. Past Medical History - Adult Stated Complaint FLANK PAIN Allergies Coded Allergies: No Known Allergies (10/17/18) Home Medications Reported Medications No Known Home Medications Review of Nursing Notes Rev avail, and agree, Triage notes reviewed Pt reports no significant: Past medical history, Past surgical history Additional Medical History MIGRAINES Alcohol Use Denies EtOH use Drug Use Denies recreational drugs Smoking status for patients 13 years old or older: Current every day smoker Pack years (pk/d)*(yrs): 15 Date last smoked: still smoking Ambulatory Status Independent Physical Exam Vital Signs Vital Signs First Documented: Result Date Time Pulse Ox 100 01/01 0918 B/P 125/77 01/01 918 B/P Mean 93 01/01 918 O2 Delivery Room air 01/01 918 Temp 36.4 01/01 918 Pulse 87 01/01 918 Resp 18 01/01 918 Last Documented: Result Date Time Pulse Ox 100 01/01 1313 B/P 120/72 01/01 1313 B/P Mean 88 01/01 131 O2 Delivery Room air 01/01 1313 Temp 36.7 01/01 131 Pulse 72 01/01 1313 Resp 16 01/01 1313 Review of Vital Signs Reviewed Focused PE General/Const General/Const Awake, Alert, Well appearing Abdomen/GI Abdomen/GI Soft, No guarding, No rebound Tenderness/Guarding/Rebound Tender flank R. Skin Skin Color NL, No rash, Warm, Dry, Turgor NL Genitourinary General Junior Manufacturing Engineer present (Hannah RN) Male Genitourinary Inspection NL, No penile discharge, Cremasteric reflex NL, Epididymis NL Additional PE Resp/Chest Respiratory/Chest Breath sounds NL, Breath sounds = bilat, No respiratory distress Cardiovascular Cardiovascular Heart rate NL, Regular rhythm, Heart sounds NL, Cap refill not delayed, Peripheral circulation NL MS Back Flank/Spine/Paraspinal Flank tender R. Rectum Text/Dict Notes Junior Manufacturing Engineer Hannah RN Prostate Boggy, Tender. Interpretation Diagnostics Lab Results Interpretation Results Laboratory Tests 01/01/19929: [Embedded Image Not Available] Laboratory Tests: 01/01 0901 Chemistry Sodium (136 - 145 mmol/L) 142 Potassium (3.5 - 5.1 mmol/L) 3.6 Chloride (98 - 107 mmol/L) 106.0 Carbon Dioxide (21 - 32 mmol/L) 30.0 Anion Gap (10 - 20) 9.6 L BUN (7 - 18 mg/dL) 12 Creatinine (0.7 - 1.3 mg/dL) 0.90 Glomerular Filtr Rate (>=60 mL/min) > 60 BUN/Creatinine Ratio (10 - 20) 13.9 Glucose (74 - 106 mg/dL) 71 L Calcium (8.5 - 10.1 mg/dL) 8.9 Total Bilirubin (0.0 - 1.0 mg/dL) 0.80 Direct Bilirubin (0.0 - 0.20 mg/dL) 0.31 H AST (15 - 37 IUnit/L) 40 H ALT (12 - 78 IUnit/L) 46 Total Alk Phosphatase (45 - 117 IUnit/L) 117 Total Protein (6.4 - 8.2 gram/dL) 7.9 Albumin (3.4 - 5.0 g/dL) 3.4 Globulin (2.7 - 4.2 gram/dL) 4.5 H Albumin/Globulin Ratio (0.75 - 1.50) 0.8 Lipase (73.0 - 393.0 U/L) 124 Hematology WBC (4.5 - 12.5 K/mm3) 5.2 RBC (4.0 - 5.8 mill/mm3) 4.74 Hgb (13.0 - 17.5 gram/dL) 15.8 Hct (42.0 - 52.0 %) 46.5 MCV (80 - 98 fL) 98.1 H MCH (27.0 - 33.0 picogram) 33.3 H MCHC (33.0 - 36.0 gram/dL) 34.0 RDW (11.6 - 16.2 %) 13.2 Plt Count (150 - 450 K/mm3) 139 L MPV (6.7 - 11.0 fL) 10.3 Urines Urine Color (YELLOW) YELLOW Urine Appearance (CLEAR) CLEAR Urine pH (5.0 - 8.0) 5.5 Ur Specific [place] (1.001 - 1.035) 1.028 Urine Protein (NEGATIVE mg/dL) 20 (Trace) H Urine Glucose (UA) (NEGATIVE mg/dL) NEGATIVE Urine Ketones (NEGATIVE mg/dL) NEGATIVE Urine Blood (NEGATIVE mg/dL) Negative Urine Nitrite (NEGATIVE) NEGATIVE Urine Bilirubin (NEGATIVE mg/dL) NEGATIVE Urine Urobilinogen (NEGATIVE mg/dL) 6.0 (2+) H Ur Leukocyte Esterase (NEGATIVE Nica/uL) 75 Nica/uL (1+) H Urine RBC (0 - 5 #/HPF) 0-2 Urine WBC (0 - 5 per HPF) 21-50 H Ur Epithelial Cells (FEW per HPF) FEW Urine Bacteria (NONE #/HPF) FEW H Urine Mucus (FEW #/LPF) FEW Microbiology: Date/Time Procedure - Status Source Growth 01/02 928 Urine Culture - RES URINE Recent Impressions: CAT SCAN - CT ABD PELVIS W/O CONT 01/01 0933 Report Impression - Status: SIGNED Entered: 01/01/2019 1013 IMPRESSION: No hydroureteronephrosis or calyceal stones. Unremarkable decompressed urinary bladder is limited in evaluation. No free fluid or free air. Appendix is not visible however no bowel obstruction or colitis or diverticulitis or enteritis. Study is limited due to lack of intra-abdominal and subcutaneous fat and due to lack of contrast. Impression By: [email or web address] - Maverick Eckert M.D. Lab Imaging Statement Laboratory radiographic studies reviewed and considered in the medical decision-making. Point of Care Testing Urinalysis Interpretation Positive leukocyte est, Positive WBC's Pulse Oximetry Pulse Ox % 100 On: Room air Interpretation Interpreted by ks Time [address] Abdomen/Pelvis Study type No contrast Interpretation/Wet Read by Interpret - Radiologist Reviewed by myself NL Abd/Pelvis CT Findings No acute disease Re-Evaluation MDM Free Text MDM Notes Free Text MDM Notes No significant leukocytosis, no fever, CT abdomen and pelvis negative for acute disease. Patient educated on diagnosis, supportive treatment at home, diet modifications, maintaining hydration, s/s of when to return to ER, and pcp follow up. Patient prescribed Ketorolac and Bactrim. Patient verbalized understanding. Patient was provided with community resources where she can follow up within the next 24 to 48 hours. Patient was also provided with a referral to urology specialist for further evaluation. Patient verbalized understanding. Additional Text I reevaluated patient prior to discharge, patient in no active distress. Re-Evaluation/Progress Re-Evaluation/Progress 1 Time of Re-Eval 1046 Re-Eval Status Unchanged, Waiting for medications and IV fluids to be given Eval Following Treatment Condition unchanged Pain Re-Evaluation Pain unchanged Exam Post Tx - General Active, Alert, Appears well Exam Post Tx - Sys Review Mental status baseline Plan Post Re-Eval Plan observe Re-Evaluation/Progress 2 Time of Re-Eval 1145 Re-Eval Status Improved Eval Following Treatment Pt. feels better, Condition improved Pain Re-Evaluation Denies pain Exam Post Tx - General Active, Alert, Appears well Exam Post Tx - Sys Review Mental status baseline Plan Post Re-Eval Plan observe Re-Evaluation/Progress 3 Time of Re-Eval 1238 Re-Eval Status Improved Eval Following Treatment Pt. feels better, Condition improved Pain Re-Evaluation Pain improved Exam Post Tx - General Active, Alert, Appears well, Capillary refill normal, Hydration normal Exam Post Tx - Sys Review Mental status baseline Plan Post Re-Eval Plan discharge ED Course Medication(s) Ordered Medication(s) Ordered: Anti-Infective Agents Sig/Blade Start time Last Medication Dose Route Stop Time Status Admin Ceftriaxone Sodium 1,000 MG X1ED STA 01/01 1027 DC 01/01 Sodium Chloride 10 ML IV 01/01 1029 1055 Central Nervous System Agents Sig/Blade Start time Last Medication Dose Route Stop Time Status Admin Ketorolac 30 MG X1ED STA 01/01 0929 DC 01/01 Tromethamine IV 01/01 0930 1056 Electrolytic, Caloric, And Mariya Sig/Blade Start time Last Medication Dose Route Stop Time Status Admin Sodium Chloride 1,000 ML X1ED STA 01/01 0929 DC 01/01 IV 01/01 1028 1056 Gastrointestinal Drugs Sig/Blade Start time Last Medication Dose Route Stop Time Status Admin Ondansetron HCl 4 MG X1ED PRN PRN 01/01 0930 DC 01/01 IV 1055 Consultation Consultation Referral/Consult Name Franc Moore Student Affairs Vice President Called Urology Requested Call Time 1243 Requested Call Date 01/01/19 Student Affairs Vice President Will see patient, Agrees with eval, Agrees with plan Free Text Consult Notes Discussed with Dr. Guzman patient's chief complaint, lab analysis urinalysis and CT abdomen pelvis results. Dr. Moore recommended that patient be treated with Bactrim for 2 weeks for acute bacterial prostatitis and follow-up in his office further evaluation. Patient Discharge Departure Vital Signs/Condition Vital Signs First Documented: Result Date Time Pulse Ox 100 01/01 0918 B/P 125/77 01/01 918 B/P Mean 93 01/01 918 O2 Delivery Room air 01/01 918 Temp 36.4 01/01 918 Pulse 87 01/01 918 Resp 18 01/01 918 Last Documented: Result Date Time Pulse Ox 100 01/01 1313 B/P 120/72 01/01 1313 B/P Mean 88 01/01 1313 O2 Delivery Room air 01/01 1313 Temp 36.7 01/01 1313 Pulse 72 01/01 1313 Resp 16 01/01 1313 All vital signs available at the time of this entry have been reviewed. Condition Stable Clinical Impression Clinical Impression Primary Impression: Prostatitis, acute Secondary Impressions: UTI (urinary tract infection) Disposition Decision Discharge )( Discharged to Home Yes )( Time 1245 )( Date 01/01/19 Discharge/Care Plan Counseled Regarding Diagnosis, Lab results, Imaging studies, Need for follow-up, When to return to ED Prescriptions Bactrim and Ketorolac Prescriptions Reviewed Risks, Benefits, Alternative treatment Discharge Note I have spoken with the patient and/or caregivers. I have explained the patient's condition, diagnoses and treatment plan based on the information available to me at this time. I have answered the patient's and/or caregiver's questions and addressed any concerns. The patient and/or caregivers have as good an understanding of the patient's diagnosis, condition and treatment plan as can be expected at this point. The vital signs have been stable. The patient's condition is stable and appropriate for discharge from the emergency department. The patient will pursue further outpatient evaluation with the primary care physician or other designated or consulting physician as outlined in the discharge instructions. The patient and/or caregivers are agreeable to this plan of care and follow-up instructions have been explained in detail. The patient and/or caregivers have received these instructions in written format and have expressed an understanding of the discharge instructions. The patient and/or caregivers are aware that any significant change in condition or worsening of symptoms should prompt an immediate return to this or the closest emergency department or a call to 911. Quality Measures BP F/U for HTN Referred for BP f/u < 4wk, F/u with PCP/other doc Current Medications Attest: Medication review Smoking Cessation Screened, tobacco user, Tobacco cess intervention Tobacco Screening/Cessation 18 years or older, Smoking cessation offered, Counseled 3-10 minutes Smoking Cessation Counseling The patient was questioned regarding their smoking habits, and I have determined , as the patient's treating physician, that there is a medical necessity in regards to the patient's medical condition to provide smoking cessation program education. The patient was advised to stop smoking and counseled for a period of greater than 3 minutes. The patient was instructed to follow up with a primary care physician for smoking cessation and given information regarding local smoking cessation programs in the area. The patient received detailed discharge instructions as to how to stop smoking. The patient expressed an understanding of the need to follow up and the plan for smoking cessation. Eric Younger 01/03/19 0731: HPI- Male General Initial Greet Date/Time 01/01/19 0924 Patient Discharge Departure Supervising Physician Note MidLv Saw Pt Alone I have reviewed the PA/FILTROSE CRUSHER's note and plan of care. I was available for consultation as needed at all times during the patient's visit in the emergency department. I agree with the clinical impression, plan and disposition. at 0053 at 0731 RPT #:[id number] END OF REPORT [facility] 2018-10-17 11:27:00 [facility] ([facility]) EMERGENCY PROVIDER REPORT REPORT#:[id number] REPORT STATUS: Signed DATE:10/17/18 TIME: 1127 PATIENT: LONNIE AGUILAR UNIT #: [id number] ROOM/BED: AGE: 38 SEX: M PCP PHYS: No Primary Care Physician SERVICE AUTHOR: Natalie Arrieta NP * ALL edits or amendments must be made on the electronic/computer document * HPI-Headache General Confirmed Patient Yes Patient Type New patient Initial Greet Date/Time 10/17/18 1105 PCP DENIES PCP, DENIES NEURO Presentation Chief Complaint Headache Hx Obtained From Patient, Prior medical records Sudden in Onset? No Onset Occurred Weeks ago (2) Symptom Duration Since onset Progression since Onset Constant Quality Painful Severity: Onset Mild Severity: Current Pain level 10 out of 10 Free Text HPI Notes Free Text HPI Notes PATIENT TO ER W/ A 2 WEEK HISTORY OF MIGRAINE HEADACHE. REPORTS LEFT FRONTAL PAIN. REPORTS N/V, EMESIS X 2 TODAY. DENIES SUDDEN ONSET OF SEVERE PAIN, REPORTS PAIN IS CONSISTENT WITH PRIOR MIGRAINES. Risk-Headache Risk Stratification )( Subarachnoid Hemorrhage Risk factors reviewed )( IC Mass Lesion Risk factors reviewed Review of Systems ROS Statements All systems rev neg except as marked. Focused Review of Systems Constitutional Denies: Fever. Eyes Denies: Blurred bilat, Diplopia, Photophobia. GI Reports: Nausea, Vomiting. Denies: Abdominal pain, Diarrhea. Musculoskeletal Denies: Back pain, Neck pain. Neurologic Reports: Headache. Denies: Change LOC, Confusion, Dizziness, Focal weakness, Generalized weakness, Lightheaded, Numbness, Seizure, Syncope, Tingling, Vision change. Past Medical History - Adult Stated Complaint HEADACHE Allergies Coded Allergies: No Known Allergies (10/17/18) Home Medications Reported Medications No Known Home Medications Review of Nursing Notes Triage notes reviewed Additional Medical History MIGRAINES Smoking status for patients 13 years old or older: Current every day smoker Pack years (pk/d)*(yrs): 0 (PT UNSURE) Date last smoked: still smoking Physical Exam Vital Signs Vital Signs First Documented: Result Date Time Pulse Ox 97 10/17 1106 B/P 129/74 10/17 1106 B/P Mean 92 10/17 1106 O2 Delivery Room air 10/17 1106 Temp 36.9 10/17 1106 Pulse 89 10/17 1106 Resp 16 10/17 1106 Last Documented: Result Date Time Pulse Ox 100 10/17 1440 B/P 121/74 10/17 1440 B/P Mean 89 10/17 1440 Temp 36.9 10/17 1440 Pulse 71 10/17 1440 Resp 14 10/17 1440 O2 Delivery Room air 10/17 1106 Review of Vital Signs Reviewed Focused PE General/Const General/Const Awake, Alert, No acute distress, Well appearing, Well developed , Well hydrated, Well nourished, Cooperative, Not toxic appearing MS Head Head Atraumatic, Normocephalic Eyes Eyes Atraumatic, PERRL, EOMI, No nystagmus, Conjunctiva NL, Cornea clear MS Neck Neck Atraumatic, Supple, No meningismus, Full range of motion, No adenopathy, No swelling, Non-tender Resp/Chest Respiratory/Chest Atraumatic, Breath sounds NL, Breath sounds = bilat, No respiratory distress, No rales, No rhonchi, No wheezing Cardiovascular Cardiovascular Heart rate NL, Cap refill not delayed, Peripheral circulation NL Abdomen/GI Abdomen/GI Atraumatic, Soft, Non-tender, No guarding, BS normoactive, No distention, No palpable mass Skin Skin Atraumatic, Color NL, No rash, Warm, Dry, Intact, Turgor NL, No swelling Neurologic Neurologic Oriented X3, Speech NL, No motor deficits, No sensory deficits, CN II - XII intact, Memory NL, Gait NL Additional PE MS Back Back Atraumatic, Inspection NL, Non-tender Interpretation Diagnostics Point of Care Testing Pulse Oximetry Pulse Ox % 100 On: Room air Interpretation Interpreted by me, Pulse oximetry normal Re-Evaluation [facility] )( Re-Evaluation/Progress #1 Time of Re-Eval 1433 )( Re-Eval Status PAIN RESOLVED S/P SILK SPOOLER. PT EDUCATED ON DIAGNOSIS, PRESCRIPTIONS, S/S OF WHEN TO RETURN TO ER, AND NEED FOR OUTPATIENT F/U. INSTRUCTED TO RETURN TO ER W/ NEW OR WORSENING SYMPTOMS. STABLE FOR D/C. ED Course Medication(s) Ordered Medication(s) Ordered: Antihistamine Drugs Sig/Blade Start time Last Medication Dose Route Stop Time Status Admin Diphenhydramine HCl 50 MG X1ED STA 10/17 1118 DC 10/17 IV 10/17 1119 1351 Central Nervous System Agents Sig/Blade Start time Last Medication Dose Route Stop Time Status Admin Ketorolac 30 MG X1ED STA 10/17 1117 DC 10/17 Tromethamine IV 10/17 1118 1351 Electrolytic, Caloric, And Mariya Sig/Blade Start time Last Medication Dose Route Stop Time Status Admin Sodium Chloride 1,000 ML BOLUS ONCE ONE 10/17 1130 DC 10/17 IV 10/17 1229 1352 Gastrointestinal Drugs Sig/Blade Start time Last Medication Dose Route Stop Time Status Admin Metoclopramide HCl 10 MG X1ED STA 10/17 1118 DC 10/17 IV 10/17 1119 1352 Hormones And Synthetic Substit Sig/Blade Start time Last Medication Dose Route Stop Time Status Admin Dexamethasone 10 MG X1ED STA 10/17 1118 DC 10/17 IV 10/17 1119 1351 Patient Discharge Departure Vital Signs/Condition Vital Signs First Documented: Result Date Time Pulse Ox 97 10/17 1106 B/P 129/74 10/17 1106 B/P Mean 92 10/17 1106 O2 Delivery Room air 10/17 1106 Temp 36.9 10/17 1106 Pulse 89 10/17 1106 Resp 16 10/17 1106 Last Documented: Result Date Time Pulse Ox 100 10/17 1440 B/P 121/74 10/17 1440 B/P Mean 89 10/17 1440 Temp 36.9 10/17 1440 Pulse 71 10/17 1440 Resp 14 10/17 1440 O2 Delivery Room air 10/17 1106 All vital signs available at the time of this entry have been reviewed. Condition Improved, Stable Clinical Impression Clinical Impression Primary Impression: Headache Disposition Decision Discharge )( Discharged to Home Yes )( Time 1434 )( Date 10/17/18 Discharge/Care Plan Counseled Regarding Diagnosis, Prescriptions, Need for follow-up, When to return to ED Prescriptions MOTRIN, REGLAN Prescriptions Reviewed Risks, Benefits, Alternative treatment Discharge Note I have spoken with the patient and/or caregivers. I have explained the patient's condition, diagnoses and treatment plan based on the information available to me at this time. I have answered the patient's and/or caregiver's questions and addressed any concerns. The patient and/or caregivers have as good an understanding of the patient's diagnosis, condition and treatment plan as can be expected at this point. The vital signs have been stable. The patient's condition is stable and appropriate for discharge from the emergency department. The patient will pursue further outpatient evaluation with the primary care physician or other designated or consulting physician as outlined in the discharge instructions. The patient and/or caregivers are agreeable to this plan of care and follow-up instructions have been explained in detail. The patient and/or caregivers have received these instructions in written format and have expressed an understanding of the discharge instructions. The patient and/or caregivers are aware that any significant change in condition or worsening of symptoms should prompt an immediate return to this or the closest emergency department or a call to 911. Quality Measures BP F/U for HTN Referred for BP f/u < 4wk, F/u with PCP/other doc Primary Headache CT Normal neurologic exam, No CT/CTA/MRI/MRA Smoking Cessation Screened, tobacco user, Tobacco cess intervention at 1747 RPT #:[id number] END OF REPORT [facility] 2018-10-17 11:27:00 [facility] ([facility]) EMERGENCY PROVIDER REPORT REPORT#:[id number] REPORT STATUS: Signed DATE:10/17/18 TIME: 1126 PATIENT: LONNIE AGUILAR UNIT #: [id number] ROOM/BED: AGE: 38 SEX: M PCP PHYS: No Primary Care Physician SERVICE AUTHOR: Natalie Arrieta NP * ALL edits or amendments must be made on the electronic/computer document * Natalie Arrieta 10/17/18 1127: HPI-Headache General Confirmed Patient Yes Patient Type New patient PCP DENIES PCP, DENIES NEURO Presentation Chief Complaint Headache Hx Obtained From Patient, Prior medical records Sudden in Onset? No Onset Occurred Weeks ago (2) Symptom Duration Since onset Progression since Onset Constant Quality Painful Severity: Onset Mild Severity: Current Pain level 10 out of 10 Free Text HPI Notes Free Text HPI Notes PATIENT TO ER W/ A 2 WEEK HISTORY OF MIGRAINE HEADACHE. REPORTS LEFT FRONTAL PAIN. REPORTS N/V, EMESIS X 2 TODAY. DENIES SUDDEN ONSET OF SEVERE PAIN, REPORTS PAIN IS CONSISTENT WITH PRIOR MIGRAINES. Risk-Headache Risk Stratification )( Subarachnoid Hemorrhage Risk factors reviewed )( IC Mass Lesion Risk factors reviewed Review of Systems ROS Statements All systems rev neg except as marked. Focused Review of Systems Constitutional Denies: Fever. Eyes Denies: Blurred bilat, Diplopia, Photophobia. GI Reports: Nausea, Vomiting. Denies: Abdominal pain, Diarrhea. Musculoskeletal Denies: Back pain, Neck pain. Neurologic Reports: Headache. Denies: Change LOC, Confusion, Dizziness, Focal weakness, Generalized weakness, Lightheaded, Numbness, Seizure, Syncope, Tingling, Vision change. Past Medical History - Adult Stated Complaint HEADACHE Allergies Coded Allergies: No Known Allergies (10/17/18) Home Medications Reported Medications No Known Home Medications Review of Nursing Notes Triage notes reviewed Additional Medical History MIGRAINES Smoking status for patients 13 years old or older: Current every day smoker Pack years (pk/d)*(yrs): 0 (PT UNSURE) Date last smoked: still smoking Physical Exam Vital Signs Vital Signs First Documented: Result Date Time Pulse Ox 97 10/17 1106 B/P 129/74 10/17 1106 B/P Mean 92 10/17 1106 O2 Delivery Room air 10/17 1106 Temp 36.9 10/17 1106 Pulse 89 10/17 1106 Resp 16 10/17 1106 Last Documented: Result Date Time Pulse Ox 100 10/17 1440 B/P 121/74 10/17 1440 B/P Mean 89 10/17 1440 Temp 36.9 10/17 1440 Pulse 71 10/17 1440 Resp 14 10/17 1440 O2 Delivery Room air 10/17 110 Review of Vital Signs Reviewed Focused PE General/Const General/Const Awake, Alert, No acute distress, Well appearing, Well developed , Well hydrated, Well nourished, Cooperative, Not toxic appearing MS Head Head Atraumatic, Normocephalic Eyes Eyes Atraumatic, PERRL, EOMI, No nystagmus, Conjunctiva NL, Cornea clear MS Neck Neck Atraumatic, Supple, No meningismus, Full range of motion, No adenopathy, No swelling, Non-tender Resp/Chest Respiratory/Chest Atraumatic, Breath sounds NL, Breath sounds = bilat, No respiratory distress, No rales, No rhonchi, No wheezing Cardiovascular Cardiovascular Heart rate NL, Cap refill not delayed, Peripheral circulation NL Abdomen/GI Abdomen/GI Atraumatic, Soft, Non-tender, No guarding, BS normoactive, No distention, No palpable mass Skin Skin Atraumatic, Color NL, No rash, Warm, Dry, Intact, Turgor NL, No swelling Neurologic Neurologic Oriented X3, Speech NL, No motor deficits, No sensory deficits, CN II - XII intact, Memory NL, Gait NL Additional PE MS Back Back Atraumatic, Inspection NL, Non-tender Interpretation Diagnostics Point of Care Testing Pulse Oximetry Pulse Ox % 100 On: Room air Interpretation Interpreted by me, Pulse oximetry normal Re-Evaluation [facility] )( Re-Evaluation/Progress #1 Time of Re-Eval 1433 )( Re-Eval Status PAIN RESOLVED S/P SILK SPOOLER. PT EDUCATED ON DIAGNOSIS, PRESCRIPTIONS, S/S OF WHEN TO RETURN TO ER, AND NEED FOR OUTPATIENT F/U. INSTRUCTED TO RETURN TO ER W/ NEW OR WORSENING SYMPTOMS. STABLE FOR D/C. ED Course Medication(s) Ordered Medication(s) Ordered: Antihistamine Drugs Sig/Blade Start time Last Medication Dose Route Stop Time Status Admin Diphenhydramine HCl 50 MG X1ED STA 10/17 1118 DC 10/17 IV 10/17 1119 1351 Central Nervous System Agents Sig/Blade Start time Last Medication Dose Route Stop Time Status Admin Ketorolac 30 MG X1ED STA 10/17 1117 DC 10/17 Tromethamine IV 10/17 1118 1351 Electrolytic, Caloric, And Mariya Sig/Blade Start time Last Medication Dose Route Stop Time Status Admin Sodium Chloride 1,000 ML BOLUS ONCE ONE 10/17 1130 DC 10/17 IV 10/17 1229 1352 Gastrointestinal Drugs Sig/Blade Start time Last Medication Dose Route Stop Time Status Admin Metoclopramide HCl 10 MG X1ED STA 10/17 1118 DC 10/17 IV 10/17 1119 1352 Hormones And Synthetic Substit Sig/Blade Start time Last Medication Dose Route Stop Time Status Admin Dexamethasone 10 MG X1ED STA 10/17 1118 DC 10/17 IV 10/17 1119 1351 Patient Discharge Departure Vital Signs/Condition Vital Signs First Documented: Result Date Time Pulse Ox 97 10/17 1106 B/P 129/74 10/17 1106 B/P Mean 92 10/17 1106 O2 Delivery Room air 10/17 1106 Temp 36.9 10/17 1106 Pulse 89 10/17 1106 Resp 16 10/17 1106 Last Documented: Result Date Time Pulse Ox 100 10/17 1440 B/P 121/74 10/17 1440 B/P Mean 89 10/17 1440 Temp 36.9 10/17 1440 Pulse 71 10/17 1440 Resp 14 10/17 1440 O2 Delivery Room air 10/17 1106 All vital signs available at the time of this entry have been reviewed. Condition Improved, Stable Clinical Impression Clinical Impression Primary Impression: Headache Disposition Decision Discharge )( Discharged to Home Yes )( Time 1434 )( Date 10/17/18 Discharge/Care Plan Counseled Regarding Diagnosis, Prescriptions, Need for follow-up, When to return to ED Prescriptions MOTRIN, REGLAN Prescriptions Reviewed Risks, Benefits, Alternative treatment Discharge Note I have spoken with the patient and/or caregivers. I have explained the patient's condition, diagnoses and treatment plan based on the information available to me at this time. I have answered the patient's and/or caregiver's questions and addressed any concerns. The patient and/or caregivers have as good an understanding of the patient's diagnosis, condition and treatment plan as can be expected at this point. The vital signs have been stable. The patient's condition is stable and appropriate for discharge from the emergency department. The patient will pursue further outpatient evaluation with the primary care physician or other designated or consulting physician as outlined in the discharge instructions. The patient and/or caregivers are agreeable to this plan of care and follow-up instructions have been explained in detail. The patient and/or caregivers have received these instructions in written format and have expressed an understanding of the discharge instructions. The patient and/or caregivers are aware that any significant change in condition or worsening of symptoms should prompt an immediate return to this or the closest emergency department or a call to 911. Quality Measures BP F/U for HTN Referred for BP f/u < 4wk, F/u with PCP/other doc Primary Headache CT Normal neurologic exam, No CT/CTA/MRI/MRA Smoking Cessation Screened, tobacco user, Tobacco cess intervention Eric Younger 10/19/18 1203: HPI-Headache General Initial Greet Date/Time 10/17/18 1105 Patient Discharge Departure Supervising Physician Note MidLv Saw Pt Alone I have reviewed the PA/FILTROSE CRUSHER's note and plan of care. I was available for consultation as needed at all times during the patient's visit in the emergency department. I agree with the clinical impression, plan and disposition. at 1747 at 1204 RPT #:[id number] END OF REPORT [facility] 2018-10-16 13:03:00 [facility] ([facility]) EMERGENCY PROVIDER REPORT REPORT#:[id number] REPORT STATUS: Signed DATE:10/16/18 TIME: 1303 PATIENT: LONNIE AGUILAR UNIT #: [id number] ROOM/BED: AGE: 38 SEX: M PCP PHYS: No Primary Care Physician SERVICE AUTHOR: Geoffrey Torres MD * ALL edits or amendments must be made on the electronic/computer document * HPI-Headache General Confirmed Patient Yes Initial Greet Date/Time 10/16/18 1256 PCP No PCP Presentation Chief Complaint Migraine headache Hx Obtained From Patient Sudden in Onset? No Onset Occurred a week and a half ago Symptom Duration Since onset Progression since Onset Constant Location Generalized Quality Aching Radiation Does not radiate. Severity: Onset Moderate Severity: Current Moderate Associated with Reports: Vomiting. Free Text HPI Notes Free Text HPI Notes Pt is 38 year old male with hx of migraine headaches who presents to ED with migraine headache that began a week and a half ago. Pt states headache has been constant and has caused him to vomit. Sx are reported to be similar to prior migranie headaches. Pt reorts taking Excedrine and Tylenol but denies relief. Portions of this section were scribed by TEODORO PIERRE on 10/16/18 at 1557 Risk-Headache Risk Stratification )( Subarachnoid Hemorrhage Risk factors reviewed )( IC Mass Lesion Risk factors reviewed Portions of this section were scribed by TEODORO PIERRE on 10/16/18 at 1306 Review of Systems ROS Statements All systems rev neg except as marked. Focused Review of Systems GI Reports: Nausea, Vomiting. Neurologic Reports: Headache. Denies: Lightheaded. Portions of this section were scribed by TEODORO PIERRE on 10/16/18 at 1306 Past Medical History - Adult Stated Complaint HEADACHE Allergies Coded Allergies: No Known Allergies (10/17/18) Home Medications Reported Medications No Known Home Medications Pt reports no significant: Past medical history, Past surgical history Portions of this section were scribed by TEODORO PIERRE on 10/16/18 at 1306 Physical Exam Vital Signs Vital Signs First Documented: Result Date Time Pulse Ox 98 10/16 1307 B/P 120/71 10/16 1307 B/P Mean 87 10/16 1307 O2 Delivery Room air 10/16 1307 Temp 36.8 10/16 1307 Pulse 94 10/16 1307 Resp 16 10/16 1307 Last Documented: Result Date Time Pulse Ox 98 10/16 1307 B/P 120/71 10/16 1307 B/P Mean 87 10/16 1307 O2 Delivery Room air 10/16 1307 Temp 36.8 10/16 1307 Pulse 94 10/16 1307 Resp 16 10/16 1307 Review of Vital Signs Reviewed Focused PE General/Const General/Const Awake, Alert, No acute distress MS Head Head Atraumatic, Normocephalic Eyes Eyes PERRL, No scleral icterus, Conjunctiva NL Ears/Nose/Throat Ears/Nose/Throat Atraumatic, Airway patent, Mucous membranes moist MS Neck Neck Supple, Full range of motion Resp/Chest Respiratory/Chest Breath sounds NL, Breath sounds = bilat, No respiratory distress Cardiovascular Cardiovascular Regular rhythm, Heart sounds NL, Peripheral circulation NL Abdomen/GI Abdomen/GI Soft, Non-tender, No guarding, No rebound, No palpable mass, No pulsatile mass Skin Skin Color NL, Warm, Dry Neurologic Neurologic Oriented X3, Speech NL, No motor deficits, No sensory deficits, CN II - XII intact Additional PE MS Lower Extrem Lower Ext/Pelvis/MS No edema Portions of this section were scribed by TEODORO PIERRE on 10/16/18 at 1557 Interpretation Diagnostics Point of Care Testing Pulse Oximetry Pulse Ox % 98 On: Room air Interpretation Interpreted by ks, Pulse oximetry normal Time 1307 Portions of this section were scribed by TEODORO PIERRE on 10/16/18 at 1310 Re-Evaluation MDM )( Re-Evaluation/Progress #1 )( Re-Eval Status Improved Headache MDM Note The patient presented to the emergency department with a headache. The patient is now resting comfortably and feels better, is alert, talkative, interactive and in no distress. The patient appears well and is able to tolerate PO fluids. The repeat examination is unremarkable and benign. The patient is neurologically intact, has a normal mental status, and is ambulatory in the ED. The history, exam, diagnostic testing (if any) and the patient's current condition do not suggest meningitis, stroke, sepsis, subarachnoid hemorrhage, intracranial bleeding, encephalitis, temporal arteritis or other significant pathology to warrant further testing, continued ED treatment, admission, neurological consultation, or other specialist evaluation at this point. The vital signs have been stable. The patient's condition is stable and appropriate for discharge. The patient will pursue further outpatient evaluation with the primary care physician or other designated or consulting physician as indicated in the discharge instructions. ED Course Medication(s) Ordered Medication(s) Ordered: Central Nervous System Agents Sig/Blade Start time Last Medication Dose Route Stop Time Status Admin Acetaminophen/ 2 UDTAB X1ED STA 10/16 1307 DC 10/16 Butalbital/Caffeine PO 10/16 1308 1520 Portions of this section were scribed by TEODORO PIERRE on 10/16/18 at 1557 Patient Discharge Departure Vital Signs/Condition Vital Signs First Documented: Result Date Time Pulse Ox 98 10/16 1307 B/P 120/71 10/16 1307 B/P Mean 87 10/16 1307 O2 Delivery Room air 10/16 1307 Temp 36.8 10/16 1307 Pulse 94 10/16 1307 Resp 16 10/16 1307 Last Documented: Result Date Time Pulse Ox 98 10/16 1307 B/P 120/71 10/16 1307 B/P Mean 87 10/16 1307 O2 Delivery Room air 10/16 1307 Temp 36.8 10/16 1307 Pulse 94 10/16 1307 Resp 16 10/16 1307 All vital signs available at the time of this entry have been reviewed. Clinical Impression Clinical Impression Primary Impression: Migraine headache Disposition Decision Discharge )( Discharged to Home Yes )( Time 1557 )( Date 10/16/18 Discharge/Care Plan Counseled Regarding Diagnosis, Prescriptions, Need for follow-up, When to return to ED Discharge Note I have spoken with the patient and/or caregivers. I have explained the patient's condition, diagnoses and treatment plan based on the information available to me at this time. I have answered the patient's and/or caregiver's questions and addressed any concerns. The patient and/or caregivers have as good an understanding of the patient's diagnosis, condition and treatment plan as can be expected at this point. The vital signs have been stable. The patient's condition is stable and appropriate for discharge from the emergency department. The patient will pursue further outpatient evaluation with the primary care physician or other designated or consulting physician as outlined in the discharge instructions. The patient and/or caregivers are agreeable to this plan of care and follow-up instructions have been explained in detail. The patient and/or caregivers have received these instructions in written format and have expressed an understanding of the discharge instructions. The patient and/or caregivers are aware that any significant change in condition or worsening of symptoms should prompt an immediate return to this or the closest emergency department or a call to 911. Supervising Physician Note Scribe Statement By signing my name below, I,Teodoro Pierre, attest that this document has been prepared under the direction and in the presence of Dr. Brian MD. Electronically signed: Ruby Kuo. Date: 10/16/2018. Time:1309 Provider Scribed Statement I personally performed the services described in this documentation and reviewed the documentation that was dictated to the scribe(s) in my presence, and it accurately records my words and actions. Geoffrey Torres, 10/19/18 Portions of this section were scribed by TEODORO PIERRE on 10/16/18 at 1557 at 2319 RPT #:[id number] END OF REPORT [facility] 2018-07-15 16:47:00 [facility] ([facility]) EMERGENCY PROVIDER REPORT REPORT#:[id number] REPORT STATUS: Signed DATE:07/15/18 TIME: 1647 PATIENT: LONNIE AGUILAR UNIT #: [id number] ROOM/BED: AGE: 37 SEX: M PCP PHYS: No Primary Care Physician SERVICE AUTHOR: Choco Lorenz MD * ALL edits or amendments must be made on the electronic/computer document * HPI-Nausea/Vomit/Diarrhea General Date/Time Seen by Provider 07/15/18 1533 Presentation Chief Complaint Nausea, Vomiting, Diarrhea Hx Obtained From Patient Onset Occurred Gradual, Days ago Symptom Duration Since onset Progression since Onset Unchanged Context of Onset + sick contacts at home with vomiting and diarrhea Vomiting Vomiting clear Diarrhea Diarrhea is watery Location no pain Quality Unable to verbalize Radiation Does not radiate. Severity: Onset Moderate Severity: Current No pain currently Associated with Denies: Anorexia, Blood in stool, Fever, Hematemesis, Shaking chills. Exacerbated by Food Relieved by Nothing Review of Systems ROS Statements All systems rev neg except as marked. Focused Review of Systems Constitutional Denies: Fever. GI Denies: Abdominal pain, Bloody/tarry stool, Hematemesis, Hematochezia, Mucousy stool, Melena. Skin Denies: Diaphoresis, Rash. Neurologic Denies: Change LOC, Dizziness, Focal weakness, Headache, Numbness, Slurred speech. Additional Review of Systems Respiratory Denies: Dyspnea on exertion, Hemoptysis, Shortness of breath. Cardiovascular Denies: Chest pain, Dyspnea on exertion, Syncope. Past Medical History - Adult Stated Complaint VOMITING DIARREAH Allergies Coded Allergies: No Known Allergies (07/15/18) Review of Nursing Notes Rev avail, and agree Pt reports no significant: Past medical history, Past surgical history, Social history Smoking status for patients 13 years old or older: Current every day smoker Physical Exam Vital Signs Vital Signs First Documented: Result Date Time Pulse Ox 97 07/15 1531 B/P 135/79 07/15 1531 B/P Mean 97 07/15 1531 O2 Delivery Room air 07/15 153 Temp 37.2 07/15 153 Pulse 106 07/15 1531 Resp 16 07/15 1531 Last Documented: Result Date Time Pulse Ox 98 07/15 1745 B/P 122/66 07/15 1745 B/P Mean 84 07/15 174 O2 Delivery Room air 07/15 174 Temp 37.0 07/15 174 Pulse 83 07/15 174 Resp 18 07/15 174 Review of Vital Signs Reviewed Focused PE General/Const General/Const Awake, Alert, Well appearing Eyes Eyes PERRL Ears/Nose/Throat Ears/Nose/Throat Airway patent, Pharynx NL Mouth Mucous membranes dry. Resp/Chest Respiratory/Chest Breath sounds NL, Breath sounds = bilat, No respiratory distress, No rales, No rhonchi, No wheezing Cardiovascular Cardiovascular Heart rate NL, Regular rhythm, Heart sounds NL, Peripheral circulation NL Abdomen/GI Abdomen/GI Soft, Non-tender, McBurney's non-tender, No guarding, No rebound, BS normoactive, No distention, No hernia, No palpable mass MS Back Back Inspection NL, Non-tender, No CVA tenderness Skin Skin Color NL, No rash, Warm, Dry, Turgor NL Neurologic Neurologic Oriented X3, Speech NL, No motor deficits, No sensory deficits Additional PE MS Head Head Atraumatic, Normocephalic MS Neck Neck Atraumatic, Supple, No meningismus, Full range of motion, No adenopathy, No swelling, Non-tender, No midline vertebral tend Interpretation Diagnostics Lab Results Interpretation Results Laboratory Tests 07/15/18 1538: [Embedded Image Not Available] Laboratory Tests: 07/15 07/15 1550 1538 Chemistry Sodium (136 - 145 mmol/L) 137 Potassium (3.5 - 5.1 mmol/L) 3.4 L Chloride (98 - 107 mmol/L) 103.0 Carbon Dioxide (21 - 32 mmol/L) 26.0 Anion Gap (10 - 20) 11.4 BUN (7 - 18 mg/dL) 14 Creatinine (0.7 - 1.3 mg/dL) 1.40 H Glomerular Filtr Rate (>=60 mL/min) 57 BUN/Creatinine Ratio (10 - 20) 10.0 Glucose (74 - 106 mg/dL) 130 H Calcium (8.5 - 10.1 mg/dL) 8.2 L Total Bilirubin (0.0 - 1.0 mg/dL) 1.30 H Direct Bilirubin (0.0 - 0.20 mg/dL) 0.43 H AST (15 - 37 IUnit/L) 50 H ALT (12 - 78 IUnit/L) 56 Total Alk Phosphatase (45 - 117 IUnit/L) 130 H Total Protein (6.4 - 8.2 gram/dL) 8.3 H Albumin (3.4 - 5.0 g/dL) 3.9 Globulin (2.7 - 4.2 gram/dL) 4.4 H Albumin/Globulin Ratio (0.75 - 1.50) 0.9 Lipase (73.0 - 393.0 U/L) 121 Hematology WBC (4.5 - 12.5 K/mm3) 6.5 RBC (4.0 - 5.8 mill/mm3) 5.17 Hgb (13.0 - 17.5 gram/dL) 17.1 Hct (42.0 - 52.0 %) 50.0 MCV (80 - 98 fL) 96.7 MCH (27.0 - 33.0 picogram) 33.1 H MCHC (33.0 - 36.0 gram/dL) 34.2 RDW (11.6 - 16.2 %) 12.8 Plt Count (150 - 450 K/mm3) 154 MPV (6.7 - 11.0 fL) 10.2 Urines Urine Color (YELLOW) Dark-Yellow Urine Appearance (CLEAR) CLEAR Urine pH (5.0 - 8.0) 5.5 Ur Specific [place] (1.001 - 1.035) 1.029 Urine Protein (NEGATIVE mg/dL) 20 (Trace) H Urine Glucose (UA) (NEGATIVE mg/dL) NEGATIVE Urine Ketones (NEGATIVE mg/dL) 10 (1+) H Urine Blood (NEGATIVE mg/dL) Negative Urine Nitrite (NEGATIVE) NEGATIVE Urine Bilirubin (NEGATIVE mg/dL) 0.5 (1+) H Urine Urobilinogen (NEGATIVE mg/dL) >12.0 (4+) H Ur Leukocyte Esterase (NEGATIVE Nica/uL) NEGATIVE Urine RBC (0 - 5 #/HPF) 0-2 Urine WBC (0 - 5 per HPF) 0-5 Ur Epithelial Cells (FEW per HPF) None seen Urine Bacteria (NONE #/HPF) NONE SEEN Urine Mucus (FEW #/LPF) FEW Point of Care Testing Pulse Oximetry Pulse Ox % 98 On: Room air Interpretation Interpreted by me, Pulse oximetry normal Time 1647 Re-Evaluation MDM Re-Evaluation/Progress #1 Time of Re-Eval 1714 Re-Eval Status Improved, pt resting comfortably; abd soft ntnd; tolerating po intake; no cp/sob; neuro exam nml; wants to go home ED Course Medication(s) Ordered Medication(s) Ordered: Electrolytic, Caloric, And Mariya Sig/Blade Start time Last Medication Dose Route Stop Time Status Admin Undefined Medication 20 MEQ X1ED STA 07/15 1726 DC PO 07/15 1727 Sodium Chloride 1,000 ML X1ED STA 07/15 1647 DC 07/15 IV 07/15 1648 1657 Sodium Chloride 1,000 ML X1ED STA 07/15 1534 DC 07/15 IV 07/15 1633 1601 Gastrointestinal Drugs Sig/Blade Start time Last Medication Dose Route Stop Time Status Admin Ondansetron HCl 4 MG X1ED PRN PRN 07/15 1545 DC 07/15 IV 1600 Patient Discharge Departure Vital Signs/Condition Vital Signs First Documented: Result Date Time Pulse Ox 97 07/15 1531 B/P 135/79 07/15 1531 B/P Mean 97 07/15 1531 O2 Delivery Room air 07/15 1531 Temp 37.2 07/15 1531 Pulse 106 07/15 1531 Resp 16 07/15 1531 Last Documented: Result Date Time Pulse Ox 98 05/25 1745 B/P 122/66 05/25 1745 B/P Mean 84 07/15 1744 O2 Delivery Room air 07/15 1744 Temp 37.0 07/15 1744 Pulse 83 07/15 1744 Resp 18 07/15 1744 All vital signs available at the time of this entry have been reviewed. Clinical Impression Clinical Impression Primary Impression: Vomiting and diarrhea Disposition Decision Discharge )( Discharged to Home Yes )( Time 1744 )( Date 07/15/18 at 2057 RPT #:[id number] END OF REPORT [facility]
[2023-12-05] MEDS ORDERED: ONDANSETRON 4 MG/2 ML VIAL ONE (02:57)
[2023-12-05] MEDS ORDERED: NA CHLORIDE 0.9% 1,000 ML ONE (02:58)
[2023-12-05 03:11] LABS: Absolute Lymphocytes (CBC) 1.3 K/uL (0.7-4.9); Absolute Monocytes 0.9 K/uL (0.1-1.3); Absolute Neutrophil 14.8 K/uL (1.8-8.0); Basophils % 0.2 % (0-1.3); Eosinophils % 0.2 % (0-4.4); Hematocrit 47.9 % (39.6-49.0); Hemoglobin 16.7 g/dL (13.6-17.9); Lymphocytes % 7.4 % (15.3-44.8); MCH 35.1 pg (27.0-35.0); MCHC 34.9 g/dL (32.0-36.0); MCV 100.7 fL (80-100); MPV 8.1 fL (7.6-11.3); Monocytes % 5.2 % (3.3-12.3); Platelets 163 thou/uL (152-406); RBC Red Blood Cell Count 4.75 M/uL (4.33-5.43); Red Cell Distribution Width 13.4 % (12.1-15.2)
[2023-12-05 03:12] LABS: PT Prothrombin Time 11.2 SECONDS (9.4-12.5); PTT, Activated Partial Thromb 29.2 SECONDS (24.3-36.9)
[2023-12-05 03:24] LABS: ALT/SGPT 54 U/L (16-61); AST/SGOT 50 U/L (15-37); Albumin 4.1 g/dL (3.4-5.0); Alkaline Phosphatase 109 U/L (45-117); Anion Gap 14.3 mEq/L (5.0-15.0); BUN Blood Urea Nitrogen 11 mg/dL (7-18); Bicarbonate 22 mEq/L (21-32); Bilirubin Direct 0.7 mg/dL (0-0.2); Bilirubin Indirect, Calculated 0.9 mg/dL (0.2-0.8); Bilirubin Total 1.6 mg/dL (0.2-1.0); Globulin 4.3 g/dL (2.3-3.5); Glomerular Filtration Rate 80 ml/min (=/>90); Glucose Level 76 mg/dL (74-106); Potassium 3.3 mEq/L (3.5-5.1); Protein, Total 8.4 g/dL (6.4-8.2); Sodium Level 137 mEq/L (136-145)
--- NOTE | 2023-12-05 04:07 | EDPHYS ---
Physician Documentation [facility] Name: Mark Morton Jr Age: 43 yrs Sex: Male : 1980 Arrival Date: 12/05/2023 Time: 02:28 Bed 6 Private MD: ED Physician Tomas Heard HPI: 12/04 02:43 This 43 yrs old Male presents to ER via EMS with complaints of Nausea/Vomiting.yogi 02:43 The patient presents to the emergency department with nausea, vomiting, that is yogi intermittent. Onset: The symptoms/episode began/occurred just prior to arrival. Possible causes: smoked something. The symptoms are aggravated by nothing. Associated signs and symptoms: The patient has no apparent associated signs or symptoms. Severity of symptoms: At their worst the symptoms were moderate in the emergency department the symptoms are unchanged. The patient has not experienced similar symptoms in the past. Historical: - Allergies: 02:37 No Known Allergies; cp4 - Immunization history:: Adult Immunizations up to date. - Infectious Disease History:: Denies. - Social history:: Smoking status: Patient reports the use of cigarette tobacco products, smokes one pack cigarettes per day. ROS: 02:44 Constitutional: Negative for fever, chills, and weight loss, Eyes: Negative for injury, yogi pain, redness, and discharge, ENT: Negative for injury, pain, and discharge, Neck: Negative for injury, pain, and swelling, Cardiovascular: Negative for chest pain, palpitations, and edema, Respiratory: Negative for shortness of breath, cough, wheezing, and pleuritic chest pain, Back: Negative for injury and pain, : Negative for injury, bleeding, discharge, and swelling, MS/Extremity: Negative for injury and deformity, Skin: Negative for injury, rash, and discoloration, Psych: Negative for depression, anxiety, suicide ideation, homicidal ideation, and hallucinations, Allergy/Immunology: Negative for hives, rash, and allergies, Endocrine: Negative for neck swelling, polydipsia, polyuria, polyphagia, and marked weight changes, 02:44 Abdomen/GI: Positive for nausea and vomiting, Exam: 02:44 Constitutional: This is a well developed, well nourished patient who is awake, alert, yogi and in no acute distress. Head/Face: Normocephalic, atraumatic. Eyes: Pupils equal round and reactive to light, extra-ocular motions intact. Lids and lashes normal. Conjunctiva and sclera are non-icteric and not injected. Cornea within normal limits. Periorbital areas with no swelling, redness, or edema. ENT: Nares patent. No nasal discharge, no septal abnormalities noted. Tympanic membranes are normal and external auditory canals are clear. Oropharynx with no redness, swelling, or masses, exudates, or evidence of obstruction, uvula midline. Mucous membranes moist. Neck: Trachea midline, no thyromegaly or masses palpated, and no cervical lymphadenopathy. Supple, full range of motion without nuchal rigidity, or vertebral point tenderness. No Meningismus. Chest/axilla: Normal chest wall appearance and motion. Nontender with no deformity. No lesions are appreciated. Cardiovascular: Regular rate and rhythm with a normal S1 and S2. No gallops, murmurs, or rubs. Normal PMI, no JVD. No pulse deficits. Respiratory: Lungs have equal breath sounds bilaterally, clear to auscultation and percussion. No rales, rhonchi or wheezes noted. No increased work of breathing, no retractions or nasal flaring. Abdomen/GI: Soft, non-tender, with normal bowel sounds. No distension or tympany. No guarding or rebound. No evidence of tenderness throughout. Back: No spinal tenderness. No costovertebral tenderness. Full range of motion. Male : Normal genitalia with no discharge or lesions. Skin: Warm, dry with normal turgor. Normal color with no rashes, no lesions, and no evidence of cellulitis. MS/ Extremity: Pulses equal, no cyanosis. Neurovascular intact. Full, normal range of motion. Psych: Awake, alert, with orientation to person, place and time. Behavior, mood, and affect are within normal limits. 02:44 Neuro: Orientation: is normal, appropriate for stated age, no acute changes, Mentation: slow to respond, Memory: is normal, appropriate for stated age, no acute changes, Cranial nerves: grossly normal, is grossly normal based on the patient's age, no acute changes, Cerebellar function: is grossly normal, is grossly normal based on the patient's age, no acute changes, Motor: is grossly normal based on the patient's age, no acute changes, moves all fours, Sensation: is normal, no obvious gross deficits, appropriate Gait: not tested. Deep tendon reflexes are 2+ (normal) in the bilateral brachioradialis, bicep, tricep and patellar and Achilles tendons, seizure activity, is not displayed by the patient, Vital Signs: 02:34 BP 147 / 81; Pulse 114; Resp 20; Temp 98.4; Pulse Ox 98% ; Weight 56.7 kg; Height 5 ft. cp4 5 in. ; Pain 0/10; 03:30 BP 137 / 92; Pulse 100; Resp 18; Pulse Ox 98% ; cp4 04:21 BP 133 / 86; Pulse 98; Resp 18; Temp 98.4; Pulse Ox 99% ; Pain 0/10; bm8 02:34 Body Mass Index 20.80 (56.70 kg, 165.1 cm) cp4 02:34 Pain Scale: Adult cp4 04:21 Pain Scale: Adult bm8 [place] Coma Score: 02:44 Eye Response: spontaneous(4). Motor Response: obeys commands(6). Verbal Response: yogi oriented(5). Total: 15. 04:21 Eye Response: spontaneous(4). Motor Response: obeys commands(6). Verbal Response: bm8 oriented(5). Total: 15. MDM: 02:38 Patient medically screened. yogi 02:47 Differential diagnosis: Nonspecific abd pain, gastritis, viral gastroenteritis, yogi gastroenteritis. Differential Diagnosis altered mental status, sepsis, flu. Data reviewed: vital signs, nurses notes, lab test result(s), EKG, radiologic studies, plain films. Consideration of Admission/Observation Escalation of care including admission/observation considered. I considered the following discharge prescriptions or medication management in the emergency department Medications were administered in the Emergency Department. See MAR. Independent interpretation of the following test(s) in the Emergency Department EKG: See my EKG interpretation above. Test considered but Not performed: CT: no ct head. Historians other than the Patient: EMS: ems well informed. Care significantly affected by the following chronic conditions: Hypertension, tobacco use. Counseling: I had a detailed discussion with the patient and/or guardian regarding the historical points, exam findings, and any diagnostic results supporting the discharge/admit diagnosis, lab results, radiology results. 12/04 02:38 Order name: Acetaminophen; Complete Time: 03:37 yogi 12/04 02:38 Order name: Basic Metabolic Panel; Complete Time: 03:37 [facility] 12/04 02:38 Order name: CBC with Diff yogi 12/04 02:38 Order name: ETOH Level; Complete Time: 03:37 [facility] 12/04 02:38 Order name: Hepatic Function; Complete Time: 03:37 [facility] 12/04 02:38 Order name: PT-INR; Complete Time: 03:37 [facility] 12/04 02:38 Order name: Ptt, Activated; Complete Time: 03:37 [facility] 12/04 02:38 Order name: Salicylate; Complete Time: 03:37 [facility] 12/04 03:20 Order name: Manual Differential EDMS 12/04 02:53 Order name: Chest Single View XRAY [facility] 12/04 02:38 Order name: EKG - Nurse/Tech; Complete Time: 03:35 [facility] 12/04 02:38 Order name: IV Saline Lock; Complete Time: 02:54 [facility] 12/04 02:38 Order name: Labs collected and sent; Complete Time: 02:54 [facility] 12/04 02:38 Order name: Suicide Screening ([place]); Complete Time: 02:54 [facility] 12/04 03:38 Order name: PO challenge: juice; Complete Time: 04:12 [facility] Administered Medications: 03:00 Drug: Ondansetron IVP 4 mg IVP once; over 2 minutes Route: IVP; Site: right antecubital;cp4 03:35 Follow up: Response: No adverse reaction cp4 03:01 Drug: NS 0.9% IV 500 ml 500 ml IV at 1 bolus once; to be given as a bolus over 30 cp4 minutes Volume: 500 ml; Route: IV; Rate: 1 bolus; Site: right antecubital; 03:35 Follow up: Response: No adverse reaction; IV Status: Completed infusion cp4 03:34 Drug: NS 0.9% IV 1000 ml IV at 125 ml/hr continuous Route: IV; Rate: 125 ml/hr; Site: cp4 right antecubital; 04:19 Follow up: Response: No adverse reaction; IV Status: Completed infusion cp4 04:21 Drug: Potassium PO Effervescent Tablet 25 mEq PO once; dissolve in 4 ounces of water or bm8 juice Route: PO; 04:23 Follow up: Response: No adverse reaction; Medication administered at discharge. bm8 Disposition Summary: 10/14/24 04:06 Discharge Ordered Notes: Location: Home yogi Problem: new yogi Symptoms: have improved yogi Condition: Stable yogi Diagnosis - Nausea with vomiting, unspecified yogi - Abuse of other non-psychoactive substances yogi - Adverse effect of other drugs, medicaments and biological substances yogi - Elevated white blood cell count yogi - Hypokalemia yogi Followup: yogi - With: Private Physician - When: 2 - 3 days - Reason: Recheck today's complaints, Continuance of care, Re-evaluation by your physician Followup: yogi - With: Arnoldo Min, DO - When: 2 - 3 days - Reason: Recheck today's complaints, Re-evaluation by your physician Discharge Instructions: - Discharge Summary Sheet yogi - Nausea and Vomiting, Adult yogi - Nausea, Adult yogi - Substance Use Disorder yogi - Supporting Someone With an Addiction yogi - Nausea and Vomiting, Adult, [id number] yogi - Hypokalemia yogi - Vomiting, Adult yogi Forms: - Medication Reconciliation Form yogi - Antibiotic Education yogi - Prescription Opioid Use yogi - Patient Portal Instructions yogi - Leadership Thank You Letter [facility] Prescriptions: - ondansetron 4 mg Oral Tablet,disintegrating - take 1 tablet ORAL route every 8 to 12 hours for 4 days as needed for nausea yogi and vomiting; 20 tablet; Refills: 0, Product Selection Permitted Signatures: Dispatcher [employer] Tomas Barrow MD MD cha Potter, Christina cp4 Damian Villafana, RN RN bm8
--- NOTE | 2023-12-05 04:07 | ER ---
Nurse's Notes [facility] Name: Mark Morton Jr Age: 43 yrs Sex: Male : 1980 Arrival Date: 12/05/2023 Time: 02:28 Bed 6 Private MD: Diagnosis: Nausea with vomiting, unspecified;Abuse of other non-psychoactive substances;Adverse effect of other drugs, medicaments and biological substances;Elevated white blood cell count;Hypokalemia Presentation: 12/04 02:34 Chief complaint: EMS states: patient smoked a "rolled cigarette" he got from the gas cp4 station. EMS was called for difficulty breathing. Patient has had nausea and vomiting. Coronavirus screen: Client denies travel out of the [place] in the last 14 days. At this time, the client does not indicate any symptoms associated with coronavirus-19. Ebola Screen: Patient negative for fever greater than or equal to 101.5 degrees Fahrenheit, and additional compatible Ebola Virus Disease symptoms Patient denies exposure to infectious person. Patient denies travel to an Ebola-affected area in the 21 days before illness onset. No symptoms or risks identified at this time. Initial Sepsis Screen: Does the patient meet any 2 criteria? HR > 90 bpm. No. Patient's initial sepsis screen is negative. Does the patient have a suspected source of infection? No. Patient's initial sepsis screen is negative. Risk Assessment: Do you want to hurt yourself or someone else? Patient reports no desire to harm self or others. Onset of symptoms was December 05, 2023. 02:34 Method Of Arrival: EMS: [facility] 02:34 Acuity: ALINA 3 cp4 Triage Assessment: 02:37 General: Appears in no apparent distress. comfortable, Behavior is calm, cooperative, cp4 appropriate for age. Pain: Denies pain. EENT: No signs and/or symptoms were reported regarding the EENT system. Neuro: Level of Consciousness is awake, alert, obeys commands, Oriented to person, place, time, situation. Cardiovascular: Patient's skin is warm and dry. Rhythm is sinus tachycardia. Respiratory: Airway is patent Respiratory effort is even, unlabored. GI: Abdomen is flat, non-distended, Bowel sounds present X 4 quads. Abd is soft and non tender X 4 quads. Reports nausea, vomiting. : No deficits noted. Derm: No deficits noted. Musculoskeletal: No deficits noted. Historical: - Allergies: 02:37 No Known Allergies; cp4 - Immunization history:: Adult Immunizations up to date. - Infectious Disease History:: Denies. - Social history:: Smoking status: Patient reports the use of cigarette tobacco products, smokes one pack cigarettes per day. Screenin:40 [facility] ED Fall Risk Assessment (Adult) History of falling in the last 3 months, cp4 including since admission No falls in past 3 months (0 pts) Confusion or Disorientation No (0 pts) Intoxicated or Sedated No (0 pts) Impaired Gait No (0 pts) Mobility Assist Device Used No (0 pt) Altered Elimination No (0 pt) Score/Fall Risk Level 0 - 2 = Low Risk Oriented to surroundings, Maintained a safe environment, Assessed \\T\\ reinforced patient's understanding of fall precautions, Hourly rounding (assess needs \\T\\ fall precautionary measures) done. Abuse screen: Denies threats or abuse. Nutritional screening: No deficits noted. Tuberculosis screening: No symptoms or risk factors identified. Assessment: 02:40 Reassessment: No changes from previously documented assessment. cp4 03:30 Reassessment: Patient appears in no apparent distress at this time. Patient and/or cp4 family updated on plan of care and expected duration. Pain level reassessed. Patient is alert, oriented x 3, equal unlabored respirations, skin warm/dry/pink. 04:21 General: Appears in no apparent distress. comfortable, Behavior is calm, cooperative, bm8 appropriate for age. Pain: Denies pain. Neuro: No deficits noted. Level of Consciousness is alert, obeys commands, Oriented to person, place, time, situation, Appropriate for age. Cardiovascular: Denies chest pain, Capillary refill < 3 seconds in bilateral fingers Patient's skin is warm and dry. Respiratory: Airway is patent Respiratory effort is even, unlabored, Respiratory pattern is regular, agonal Breath sounds are clear. GI: No signs and/or symptoms were reported involving the gastrointestinal system. : No signs and/or symptoms were reported regarding the genitourinary system. EENT: No signs and/or symptoms were reported regarding the EENT system. Derm: No signs and/or symptoms reported regarding the dermatologic system. Musculoskeletal: No signs and/or symptoms reported regarding the musculoskeletal system. Psych: 02:55 [place] Suicide Severity Screening: In the past month, have you wished you were cp4 or wished you could go to sleep and not wake up? Patient responds "No." "In the past month, have you actually had any thoughts of killing yourself?" Patient responds "no." "In your lifetime, have you ever done anything, started to do anything, or prepared to do anything to end your life?" Patient responds "no.". Vital Signs: 02:34 BP 147 / 81; Pulse 114; Resp 20; Temp 98.4; Pulse Ox 98% ; Weight 56.7 kg; Height 5 ft. cp4 5 in. ; Pain 0/10; 03:30 BP 137 / 92; Pulse 100; Resp 18; Pulse Ox 98% ; cp4 04:21 BP 133 / 86; Pulse 98; Resp 18; Temp 98.4; Pulse Ox 99% ; Pain 0/10; bm8 02:34 Body Mass Index 20.80 (56.70 kg, 165.1 cm) cp4 02:34 Pain Scale: Adult cp4 04:21 Pain Scale: Adult bm8 [place] Coma Score: 02:44 Eye Response: spontaneous(4). Motor Response: obeys commands(6). Verbal Response: yogi oriented(5). Total: 15. 04:21 Eye Response: spontaneous(4). Motor Response: obeys commands(6). Verbal Response: bm8 oriented(5). Total: 15. ED Course: 02:29 Patient arrived in ED. [email or web address] 02:37 Triage completed. cp4 02:37 Arm band placed on right wrist. Patient placed in an exam room, on a stretcher. cp4 02:38 Tomas Heard MD is Attending Physician. yogi 02:40 Bed in low position. Call light in reach. Side rails up X2. cp4 02:40 No provider procedures requiring assistance completed. Initial lab(s) drawn, by me, cp4 sent to lab. Inserted saline lock: 22 gauge in right antecubital area, using aseptic technique. Blood collected. Flushed with 10 mL NS. 03:06 Chest Single View XRAY In Process Unspecified. EDMS 03:07 Analilia Walls is Primary Nurse. cp4 03:40 EKG done, by ED staff, reviewed by Tomas Heard MD. sa1 04:06 Arnoldo Min DO is Referral Physician. yogi 04:21 Provided Education on: post er care. bm8 04:21 IV discontinued, intact, bleeding controlled, No redness/swelling at site. Pressure bm8 dressing applied. Administered Medications: 03:00 Drug: Ondansetron IVP 4 mg IVP once; over 2 minutes Route: IVP; Site: right antecubital;cp4 03:35 Follow up: Response: No adverse reaction cp4 03:01 Drug: NS 0.9% IV 500 ml 500 ml IV at 1 bolus once; to be given as a bolus over 30 cp4 minutes Volume: 500 ml; Route: IV; Rate: 1 bolus; Site: right antecubital; 03:35 Follow up: Response: No adverse reaction; IV Status: Completed infusion cp4 03:34 Drug: NS 0.9% IV 1000 ml IV at 125 ml/hr continuous Route: IV; Rate: 125 ml/hr; Site: cp4 right antecubital; 04:19 Follow up: Response: No adverse reaction; IV Status: Completed infusion cp4 04:21 Drug: Potassium PO Effervescent Tablet 25 mEq PO once; dissolve in 4 ounces of water or bm8 juice Route: PO; 04:23 Follow up: Response: No adverse reaction; Medication administered at discharge. bm8 Medication: 02:40 VIS not applicable for this client. cp4 Outcome: 04:06 Discharge ordered by . yogi 04:21 Discharged to home via wheelchair, bm8 04:21 Condition: stable 04:21 Discharge instructions given to patient, family, Instructed on discharge instructions, follow up and referral plans. medication usage, safety practices, Demonstrated understanding of instructions, follow-up care, medications, Prescriptions given X 1, 04:24 Patient left the ED. bm8 Signatures: Dispatcher [employer] EDMS Tomas Heard MD MD cha Jeffries, Jennifer jj6 Potter, Christina cp4 Damian Villafana, RONEY RN bmSultan Elen sa1
[2023-12-05 04:08] LABS: Band Neutrophils 16 % (0-1); Differential Total Cells Count 100; Lymphocytes 13 % (15-42); Monocytes 5 % (0-10); Segmented Neutrophils 66 % (40-80)
[2023-12-05 04:09] LABS: Blood Morphology Comment NOT SEEN (NOT SEEN); Platelet Estimate ADEQ
[2023-12-05] MEDS ORDERED: POTASSIUM 25 MEQ EFFERV TAB ONE (04:15)
--- NOTE | 2023-12-05 06:15 | RAD REPORT ---
EXAM DESCRIPTION: XR CHEST 1 VIEW 12/05/2023 3:14 AM CDT CLINICAL HISTORY: 43 years, Male, Cough. COMPARISON: None. FINDINGS: 1 view of the chest (AP portable projection) was obtained. No prior films are available at this nisreen e for comparison. There is normal lung volume. Mediastinum: The cardiomediastinal silhouette appears normal in size and shape. Lungs: No areas of consolidations or masses are identified. Heart: The heart is normal in size. Thoracic aorta: The thoracic aorta demonstrate to be normal. Pulmonary vasculature: The pulmonary vasculature is normal in distribution. Pleura: The costophrenic angles demonstrate to be sharp. Osseous structures: The bony structures demonstrate to be within normal limits. Other: External EKG leads within the [id number] limits diagnosis. IMPRESSION: No acute cardiopulmonary disease is seen Electronically signed by: Shay Webber MD 12/05/2023 03:21 AM CDT RP Due to temporary technical issues with the PACS/Podio reporting system, reports are being rosas d by the in-house radiologist without review as a courtesy to ensure prompt reporting the interpreting radiologist is fully responsible for the content of the report. Transcribed Date/Time: 12/05/2023 6:14 AM
[2023-12-05 08:07] VITALS: TEMP 98.4
[2023-12-05 08:11] VITALS: BP 133/86; O2SAT 99
--- NOTE | 2023-12-08 12:06 | EKG ---
Test Date: 2023-12-05 Test Time: 03:27:28 Patient Insurance Clerk: MEASUREMENT RESULTS: Intervals: Rate: 104 PA: 178 QRSD: 78 QT: 374 QTc: 491 [place]: P: 76 PA: 178 QRS: 82 T: 68 INTERPRETIVE STATEMENTS: Sinus tachycardia Right atrial enlargement Borderline ECG No previous ECG available for comparison Electronically Signed On 12-08-23 11:56:36 CDT by Will Nath
== END 2023-12-05 04:24 | disposition home or self-care (01) ==
LOC: ER 02:28
DX: F55.8 Abuse of other non-psychoactive substances (principal); T50.995A Adverse effect of other drugs, medicaments and biological substances, initial encounter; E87.6 Hypokalemia; D72.829 Elevated white blood cell count, unspecified; F17.210 Nicotine dependence, cigarettes, uncomplicated
CPT/HCPCS: 36415; 71045; 80048; 80076; 80143; 80179; 82077; 85025; 85610; 85730; 93005; 96361; 96374; 99285; J2405; J7030